=== PATIENT | male | born 1970 | race American Indian/Alaskan Native ===

== ENCOUNTER 2016-11-29 17:13 | Emergency (ER) | payer MEDICAID ==
[2016-11-29 18:55] LABS: Urine Drugs of Abuse Note Disclamer
[2016-11-29 18:58] LABS: Basophils % (Auto) 0.9 % (0.0-1.8); Eosinophils % (Auto) 2.1 % (0.0-4.3); Hematocrit 47.1 % (35.5-45.6); Hemoglobin 15.9 gm/dl (11.8-15.2); Mean Corpuscular HGB Conc 34 % (32-34); Mean Corpuscular Hemoglobin 35 pg (28-32); Mean Corpuscular Volume 102 fl (84-94); Platelet Count 163 K/mm3 (140-440); Red Blood Count 4.61 M/mm3 (3.65-5.03); Red Cell Distribution Width 15.4 % (13.2-15.2); White Blood Count 5.5 K/mm3 (4.5-11.0)
[2016-11-29 19:04] LABS: Bilirubin,Urine NEG (Negative); Blood,Urine NEG (Negative); Ketones,Urine NEG (Negative); Leukocyte Esterase,Urine NEG (Negative); Mucus,Urine FEW /HPF; Nitrite,Urine NEG (Negative); Protein,Urine <15 mg/dL mg/dL (Negative); Urobilinogen,Urine < 2.0 mg/dL (<2.0)
[2016-11-29 19:26] LABS: Anion Gap 19 mmol/L; BUN/Creatinine Ratio 11.42; Blood Urea Nitrogen 8 mg/dL (9-20); Calcium 9.4 mg/dL (8.4-10.2); Carbon Dioxide 26 mmol/L (22-30); Chloride 100.7 mmol/L (98-107); Glucose 83 mg/dL (75-100); Potassium 4.3 mmol/L (3.6-5.0); Sodium 141 mmol/L (137-145)
--- NOTE | 2016-11-30 01:21 | Emergency Department Report ---
ED Psych HPI - General Chief Complaint: Psych Stated Complaint: HEARING VOICES Time Seen by Provider: 11/30/16 01:13 Source: patient Mode of arrival: Ambulatory - History of Present Illness Initial Comments: 45 years old male coming with auditory hallucination, he stated that he is hearing voices talking to each other and they tell him to hurt himself by taking pills. He denied any homicidal ideation. No other complaints MD Complaint: suicidal ideation -: Gradual Associated Psychiatric Symptoms: suicidal ideation, racing thoughts, auditory hallucinations, delusions History of same: Yes If Self Harm: admits thoughts of, has plan, intentional overdose - Related Data Previous Rx's Medication Instructions Recorded Last Taken Type Lisinopril/Hydrochlorothiazide 1 each PO QDAY #90 tablet 03/24/14 Unknown Rx [Zestoretic 10-12.5 mg] Allergies Allergy/AdvReac Type Severity Reaction Status Date / Time No Known Allergies Allergy Verified 11/30/16 00:28 ED Review of Systems ROS: Stated complaint: HEARING VOICES Other details as noted in HPI Comment: Unobtainable due to pts medical conditions Respiratory: denies: cough, orthopnea, shortness of breath Cardiovascular: denies: chest pain Gastrointestinal: denies: abdominal pain, nausea Neurological: denies: headache, weakness, numbness, paresthesias Psychiatric: auditory hallucinations, visual hallucinations, suicidal thoughts. denies: depression, homicidal thoughts ED Past Medical Hx - Past Medical History Previous Medical History?: Yes Hx Hypertension: Yes Hx Psychiatric Treatment: Yes (paranoid schizophrenia) - Surgical History Past Surgical History?: Yes Additional Surgical History: left ankle - Social History Smoking Status: Current Every Day Smoker Substance Use Type: Alcohol, Cocaine, Marijuana - Medications Home Medications: Home Medications Medication Instructions Recorded Confirmed Last Taken Type Lisinopril/Hydrochlorothiazide 1 each PO QDAY #90 tablet 03/24/14 11/30/16 Unknown Rx [Zestoretic 10-12.5 mg] ED Physical Exam - General Limitations: No Limitations General appearance: alert - Head Head exam: Present: atraumatic, normocephalic - Eye Eye exam: Present: normal appearance - ENT ENT exam: Present: normal exam - Neck Neck exam: Present: normal inspection - Respiratory Respiratory exam: Present: normal lung sounds bilaterally - Cardiovascular Cardiovascular Exam: Present: regular rate, normal rhythm, normal heart sounds - GI/Abdominal GI/Abdominal exam: Present: soft. Absent: tenderness, guarding, mass, bruit, pulsatile mass - Back Exam Back exam: Present: normal inspection. Absent: CVA tenderness (R), CVA tenderness (L) - Neurological Exam Neurological exam: Present: alert, oriented X3, CN II-XII intact - Psychiatric Psychiatric exam: Present: anxious, suicidal ideation. Absent: depressed, manic , homicidal ideation - Skin Skin exam: Present: warm ED Course Vital Signs 11/29/16 11/30/16 18:28 00:20 Temperature 98.6 F 98.2 F Pulse Rate 69 57 L Respiratory 18 16 Rate Blood Pressure 156/114 Blood Pressure 161/106 [Left] O2 Sat by Pulse 100 100 Oximetry ED Medical Decision Making - Lab Data Result diagrams: 11/29/16 18:33 11/29/16 18:33 Critical care attestation.: If time is entered above; I have spent that time in minutes in the direct care of this critically ill patient, excluding procedure time. ED Disposition Clinical Impression: Acute psychosis Disposition: [id number]/TX-65 PSY HOSP/PSY UNIT Is pt being admited?: No Condition: Stable Referrals: PRIMARY CARE, [Primary Care Provider] - 3-5 Days
[2016-11-30] MEDS ORDERED: GEODON IM ONE (01:51)
[2016-11-30] MEDS ORDERED: WATER FOR INJ (PF) 10 ML ONE (02:06)
[2016-11-30] MEDS ORDERED: HCTZ PO ONE (05:29)
[2016-11-30] MEDS ORDERED: ZESTRIL PO ONE (05:30)
[2016-11-30] MEDS ORDERED: ZESTRIL ONE (09:18)
[2016-11-30] MEDS ORDERED: HCTZ ONE (09:18)
[2016-11-30 13:48] VITALS: BP 142/99
--- NOTE | 2016-11-30 14:41 | Consultation ---
History of Present Illness - Reason for Consult Consult date: 11/30/16 Reason for consult: Mental Health Evaluation Requesting physician: DAVID MONTEMAYOR - Chief Complaint Chief complaint: "Hello" - History of Present Psychiatric Illness 45 years old male presenting to [facility] for command AH's telling him to harm himself. Today patient is calm and cooperative, but disorganized during the assessment. He could not logically put his answers together when asked questions. He stated that the voices (AH's) was telling him to do all sort of things to himself. He stated that the voices interfered with his sleep last night. Also, he could not elaborate on why he was brought to the hospital. He could not confirm or deny SI's, but denies HI's. He stated that he used cocaine a day ago, because he is celebrating his birthday for the entire month of November. He admit to smoking marijuana often. He denies excessive alcohol consumption and a poor appetite. Medications and Allergies Allergies Allergy/AdvReac Type Severity Reaction Status Date / Time No Known Allergies Allergy Verified 11/30/16 00:28 Home Medications Medication Instructions Recorded Confirmed Last Taken Type Lisinopril/Hydrochlorothiazide 1 each PO QDAY #90 tablet 03/24/14 11/30/16 Unknown Rx [Zestoretic 10-12.5 mg] Past psychiatric history - Past Medical History Past Medical History: hypertension Past Surgical History: Other (Left Ankle surgery) - past Psychiatric treatment and history Psych: Schizophrenia psychiatric treatment history: Multiple inpatient psy settings. Denies a fam psy hx. - Social History Social history: lives with family Mental Status Exam - Vital signs Last Vital Signs Temp 98 F 11/30/16 13:46 Pulse 69 11/30/16 13:46 Resp 18 11/30/16 13:46 BP 142/99 11/30/16 13:46 Pulse Ox 98 11/30/16 13:46 - Exam Narrative exam: ROS: (+) psychosis MSE: Appearance: calm, cooperative Behavior: regular eye contact Speech: regular rate and tone Mood: 'I don't know" withdrawn Affect: congruent to mood Thought Process: circumstantial Thought Content: Denies SI/HI's and VH's, disorganized Motor Activity: lying in bed Cognition: A/Ox 3 Insight: limited Judgment: limited Results Result Diagrams: 11/29/16 18:33 11/29/16 18:33 Abnormal lab results 11/29/16 11/29/16 Range/Units 18:33 18:33 Hgb 15.9 H (11.8-15.2) gm/dl Hct 47.1 H (35.5-45.6) % MCV 102 H (84-94) fl MCH 35 H (28-32) pg RDW 15.4 H (13.2-15.2) % Lymph % (Auto) 41.4 H (13.4-35.0) % BUN 8 L (9-20) mg/dL Creatinine 0.7 L (0.8-1.5) mg/dL All other labs normal. Assessment and Plan Assessment and plan: Impression: Historical Dx: Schizophrenia. Unspecified Mood DO with psychotic features. Substance Use DO (cocaine/marijuana). Today patient is calm and cooperative, but disorganized during the assessment. Positive for cocaine and marijuana. DDx: Schizoaffective DO, R/O Bipolar Recommendation/Plan: Continue 1013 with placement to [place].
== END 2016-11-30 13:46 ==
LOC: ED 17:13 → EEVIPCON 17:13 → ED 11-30 13:46
DX: F23 Brief psychotic disorder (principal); I10 Essential (primary) hypertension; F20.0 Paranoid schizophrenia; F17.200 Nicotine dependence, unspecified, uncomplicated; F12.90 Cannabis use, unspecified, uncomplicated; F14.90 Cocaine use, unspecified, uncomplicated
CPT/HCPCS: 36415; 80048; 80307; 81001; 82550; 85025; 96372; 99285; G0480; J3486; 80320

== ENCOUNTER 2017-04-08 21:55 | Emergency (ER) | payer MEDICAID ==
[2017-04-08 22:09] VITALS: BP 153/98
== END 2017-04-08 23:00 | disposition left against medical advice (07) ==
LOC: ED 21:55
DX: R03.0 Elevated blood-pressure reading, without diagnosis of hypertension (principal); Z53.21 Procedure and treatment not carried out due to patient leaving prior to being seen by health care provider
CPT/HCPCS: 93005; 93010

== ENCOUNTER 2018-10-13 15:33 | Emergency (ER) | payer MEDICAID ==
--- NOTE | 2018-10-13 17:47 | Emergency Department Report ---
ED Neck Pain/Injury HPI - General Chief Complaint: Extremity Injury, Upper Stated Complaint: LT ARM NUMBNESS Time Seen by Provider: 10/13/18 17:14 Mode of arrival: Ambulatory Limitations: No Limitations - History of Present Illness Initial Comments: Patient is a 47-year-old male who presents to the emergency room with complaints of neck pain that began a week ago. He has associated tingling in his bilateral arms. Denies any fall or injury or weakness. pt has experienced tingling in his bilateral arms before. he does not have the tingling currently. He has a past medical history of high blood pressure and mental health. He denies any chest pain, shortness of breath, nausea, vomiting, diarrhea, headache, vision changes. He is a smoker, nondrinker, denies drug use. - Related Data Previous Rx's Medication Instructions Recorded Last Taken Type Lisinopril/Hydrochlorothiazide 1 each PO QDAY #90 tablet 03/24/14 Unknown Rx [Zestoretic 10-12.5 mg] Cyclobenzaprine [Flexeril] 10 mg PO QHS PRN #12 tablet 10/13/18 Unknown Rx Naproxen [EC-Naprosyn] 500 mg PO BID PRN #24 tablet. 10/13/18 Unknown Rx predniSONE [Deltasone] 40 mg PO QDAY 7 Days #14 tab 10/13/18 Unknown Rx Allergies Allergy/AdvReac Type Severity Reaction Status Date / Time No Known Allergies Allergy Verified 10/13/18 15:42 ED Review of Systems ROS: Stated complaint: LT ARM NUMBNESS Other details as noted in HPI Comment: All other systems reviewed and negative ED Past Medical Hx - Past Medical History Previous Medical History?: Yes Hx Hypertension: Yes Hx Psychiatric Treatment: Yes (paranoid schizophrenia) - Surgical History Past Surgical History?: Yes Additional Surgical History: left ankle - Social History Smoking Status: Current Every Day Smoker Substance Use Type: None - Medications Home Medications: Home Medications Medication Instructions Recorded Confirmed Last Taken Type Lisinopril/Hydrochlorothiazide 1 each PO QDAY #90 tablet 03/24/14 11/30/16 Unknown Rx [Zestoretic 10-12.5 mg] Cyclobenzaprine [Flexeril] 10 mg PO QHS PRN #12 tablet 10/13/18 Unknown Rx Naproxen [EC-Naprosyn] 500 mg PO BID PRN #24 tablet. 10/13/18 Unknown Rx predniSONE [Deltasone] 40 mg PO QDAY 7 Days #14 tab 10/13/18 Unknown Rx ED Physical Exam - General Limitations: No Limitations General appearance: alert, in no apparent distress - Head Head exam: Present: atraumatic, normocephalic - Eye Eye exam: Present: normal appearance, PERRL - ENT ENT exam: Present: mucous membranes moist - Neck Neck exam: Present: normal inspection, tenderness (left sided C-spine paraspinal TTP, no midline C-spine tenderness, no step offs, no deformities), full ROM - Respiratory Respiratory exam: Present: normal lung sounds bilaterally. Absent: respiratory distress, wheezes, rales, rhonchi, stridor, chest wall tenderness, accessory muscle use, decreased breath sounds, prolonged expiratory - Cardiovascular Cardiovascular Exam: Present: regular rate, normal rhythm, normal heart sounds. Absent: systolic murmur, diastolic murmur, rubs, gallop - Neurological Exam Neurological exam: Present: alert, oriented X3, CN II-XII intact, normal gait, other (normal finger to nose, normal heel to orta, 5/5 strength in the BUE/BLE, sensation intact throughout, no focal neuro deficit). Absent: motor sensory deficit - Psychiatric Psychiatric exam: Present: normal affect, normal mood - Skin Skin exam: Present: warm, dry, intact ED Course Vital Signs 10/13/18 10/13/18 15:41 19:54 Temperature 98.6 F 97.8 F Pulse Rate 52 L 84 Respiratory 16 14 Rate Blood Pressure 112/72 Blood Pressure 131/82 [Right] O2 Sat by Pulse 100 100 Oximetry ED Medical Decision Making - Lab Data Result diagrams: 10/13/18 18:11 10/13/18 18:11 Lab Results 10/13/18 10/13/18 Range/Units 18:11 18:11 WBC 7.9 (4.5-11.0) K/mm3 RBC 4.19 (3.65-5.03) M/mm3 Hgb 14.0 (11.8-15.2) gm/dl Hct 40.4 (35.5-45.6) % MCV 96 H (84-94) fl MCH 33 H (28-32) pg MCHC 35 H (32-34) % RDW 14.1 (13.2-15.2) % Plt Count 201 (140-440) K/mm3 Lymph % (Auto) 41.6 H (13.4-35.0) % [place] % (Auto) 6.7 (0.0-7.3) % Eos % (Auto) 1.7 (0.0-4.3) % Baso % (Auto) 0.5 (0.0-1.8) % Lymph # 3.3 (1.2-5.4) K/mm3 [place] # 0.5 (0.0-0.8) K/mm3 Eos # 0.1 (0.0-0.4) K/mm3 Baso # 0.0 (0.0-0.1) K/mm3 Seg Neutrophils % 49.5 (40.0-70.0) % Seg Neutrophils # 3.9 (1.8-7.7) K/mm3 Sodium 136 L (137-145) mmol/L Potassium 4.2 (3.6-5.0) mmol/L Chloride 95.0 L (98-107) mmol/L Carbon Dioxide 31 H (22-30) mmol/L Anion Gap 14 mmol/L BUN 8 L (9-20) mg/dL Creatinine 0.8 (0.8-1.5) mg/dL Estimated GFR > 60 ml/min BUN/Creatinine Ratio 10 % Glucose 94 (75-100) mg/dL Calcium 9.4 (8.4-10.2) mg/dL - Radiology Data Radiology results: report reviewed CT CERVICAL SPINE WITHOUT CONTRAST HISTORY: Tingling in both arms since Sunday; neck pain COMPARISON: None TECHNIQUE: CT images of the cervical spine were obtained without contrast. Sagittal and coronal reformats were post-processed. All CT scans at this location are performed using CT dose reduction for ALARA by means of automated exposure control. CONTRAST: None. FINDINGS: Alignment: Normal. Vertebrae:No significant abnormality. Disc Spaces: Disc spaces are narrowed at C5-C6 and C6-C7 disc levels. Nonlateralizing midline disc protrusions are seen at C3-C4 and C4-C5 disc levels. At both these levels, neuroforamina are normal. Midline bulging disc is seen at C2-C3 level. Beam hardening artifacts obscuring the details in the lower cervical spine. Neuroforamina are however are normal. Facet Joints:No significant abnormality. Craniocervical Junction:No significant abnormality. Prevertebral Soft Tissues:No significant abnormality. Lung Apices: No significant abnormality. Additional Findings: None IMPRESSION: Nonlateralizing midline disc protrusions at C3-C4 and C4-C5 disc levels; neuroforamina are normal Signer Name: Lillian Hanson MD Signed: 10/13/2018 7:07 PM Workstation Name: [id number] Transcribed By: BS Dictated By: Lillian Quarles MD Electronically Authenticated By: Lillian Quarles MD Signed Date/Time: 10/13/18 1907 - Medical Decision Making Patient is a 47-year-old male who presents to the emergency room with complaints of neck pain that began a week ago. He has associated tingling in his bilateral arms. Denies any fall or injury or weakness. pt has experienced tingling in his bilateral arms before. he does not have the tingling currently. He has a past medical history of high blood pressure and mental health. He denies any chest pain, shortness of breath, nausea, vomiting, diarrhea, headache, vision changes. He is a smoker, nondrinker, denies drug use. vitals are normal. labs WNL. on exam: left sided C-spine paraspinal TTP, no midline C- spine tenderness, no step offs, no deformities, no focal neuro deficits on exami nation. Ct of the cervical spine: Nonlateralizing midline disc protrusions at C3-C4 and C4-C5 disc levels; neuroforamina are normal. pt given prescription for anti-inflammatory, muscle relaxer, and steroids. advised to please take medication as prescribed. Do not drive or operate heavy machinery while taking muscle relaxer. Follow-up with a primary care doctor the next 2-3 days. Return to the emergency room for any new or worsening symptoms. - Differential Diagnosis sprain, fx, dislocation, DDD, disc herniation, spondylolysis Critical care attestation.: If time is entered above; I have spent that time in minutes in the direct care of this critically ill patient, excluding procedure time. ED Disposition Clinical Impression: Neck pain, Cervical disc herniation, Paresthesia of upper limb Disposition: - TO HOME OR SELFCARE Is pt being admited?: No Does the pt Need Aspirin: No Condition: Stable Instructions: Cervical Disc Herniation (ED) Additional Instructions: Please take medication as prescribed. Do not drive or operate heavy machinery while taking muscle relaxer. Follow-up with a primary care doctor the next 2-3 days. Return to the emergency room for any new or worsening symptoms. Prescriptions: Cyclobenzaprine [Flexeril] 10 mg PO QHS PRN #12 tablet PRN Reason: Muscle Spasm predniSONE [Deltasone] 40 mg PO QDAY 7 Days #14 tab Naproxen [EC-Naprosyn] 500 mg PO BID PRN #24 tablet. PRN Reason: Pain, Moderate (4-6) Referrals: [facility] [Outside] - 2-3 Days [facility] [Provider Group] - 2-3 Days [facility] [Outside] - 2-3 Days Time of Disposition: 19:29 Print Language: KYRGYZ
[2018-10-13 18:44] LABS: BUN/Creatinine Ratio 10; Blood Urea Nitrogen 8 mg/dL (9-20); Calcium 9.4 mg/dL (8.4-10.2); Hemolysis Index 22
--- NOTE | 2018-10-13 19:11 | Cat Scan Report ---
CT CERVICAL SPINE WITHOUT CONTRAST HISTORY: Tingling in both arms since Sunday; neck pain COMPARISON: None TECHNIQUE: CT images of the cervical spine were obtained without contrast. Sagittal and coronal refo rmats were post-processed. All CT scans at this location are performed using CT dose reduction for AL [place] by means of automated exposure control. CONTRAST: None. FINDINGS: Alignment: Normal. Vertebrae:No significant abnormality. Disc Spaces: Disc spaces are narrowed at C5-C6 and C6-C7 disc levels. Nonlateralizing midline disc protrusions are seen at C3-C4 and C4-C5 disc levels. At both these level s, neuroforamina are normal. Midline bulging disc is seen at C2-C3 level. Beam hardening artifacts obscuring the details in the lower cervical spine. Neuroforamina are however are normal. Facet Joints:No significant abnormality. Craniocervical Junction:No significant abnormality. Prevertebral Soft Tissues:No significant abnormality. Lung Apices: No significant abnormality. Additional Findings: None IMPRESSION: Nonlateralizing midline disc protrusions at C3-C4 and C4-C5 disc levels; neuroforamina are normal Signer Name: Lillian Hanson MD Signed: 10/13/2018 7:07 PM Workstation Name: [id number]
[2018-10-13 19:15] LABS: Basophils % (Auto) 0.5 % (0.0-1.8); Eosinophils # (Auto) 0.1 K/mm3 (0.0-0.4); Eosinophils % (Auto) 1.7 % (0.0-4.3); Hematocrit 40.4 % (35.5-45.6); Lymphocytes # (Auto) 3.3 K/mm3 (1.2-5.4); Lymphocytes % (Auto) 41.6 % (13.4-35.0); Mean Corpuscular HGB Conc 35 % (32-34); Mean Corpuscular Hemoglobin 33 pg (28-32); Mean Corpuscular Volume 96 fl (84-94); Monocytes # (Auto) 0.5 K/mm3 (0.0-0.8); Monocytes % (Auto) 6.7 % (0.0-7.3); Platelet Count 201 K/mm3 (140-440); Red Blood Count 4.19 M/mm3 (3.65-5.03); Red Cell Distribution Width 14.1 % (13.2-15.2)
[2018-10-13 19:55] VITALS: BP 131/82
== END 2018-10-13 19:55 | disposition home or self-care (01) ==
LOC: ED 15:33
DX: M50.222 Other cervical disc displacement at C5-C6 level (principal); M50.223 Other cervical disc displacement at C6-C7 level; I10 Essential (primary) hypertension; F20.0 Paranoid schizophrenia; F17.200 Nicotine dependence, unspecified, uncomplicated; Z98.890 Other specified postprocedural states; Z79.899 Other long term (current) drug therapy
CPT/HCPCS: 36415; 72125; 80048; 85025; 99284

== ENCOUNTER 2019-02-16 20:05 | Emergency (ER) | payer MEDICAID ==
[2019-02-16 20:14] VITALS: BP 128/84
--- NOTE | 2019-02-16 20:58 | Event Note ---
ED Screening Note ED Screening Note: c/o left leg pain for two days states from buttock to the feet no leg swelling no fall or injury substernal CP for 3 weeks burning sensation every time he eats or drinks PMHx HTN, schizophrenia no SI/HI This initial assessment/diagnostic orders/clinical plan/treatment(s) is/are subject to change based on patients health status, clinical progression and re- assessment by fellow clinical providers in the ED. Further treatment and workup at subsequent clinical providers discretion. Patient/guardian urged not to elope from the ED as their condition may be serious if not clinically assessed and managed. Initial orders include: XR chest
--- NOTE | 2019-02-16 21:34 | XRay Report ---
CHEST 2 VIEWS INDICATION / CLINICAL INFORMATION: Chest pain. COMPARISON: One view of the chest from 03/30/2007. FINDINGS: SUPPORT DEVICES: None. HEART / MEDIASTINUM: No significant abnormality. LUNGS / PLEURA: No significant pulmonary or pleural abnormality. No pneumothorax. ADDITIONAL FINDINGS: No significant additional findings. IMPRESSION: 1. No acute abnormality of the chest. Signer Name: Isma Angela MD Signed: 02/16/2019 9:29 PM Workstation Name: [id number]
--- NOTE | 2019-02-16 22:03 | Emergency Department Report ---
ED Extremity Problem HPI - General Chief complaint: Extremity Injury, Lower Stated complaint: LEG PAIN, CHEST PAIN Time Seen by Provider: 02/16/19 20:55 Source: patient Mode of arrival: Stretcher Limitations: No Limitations - History of Present Illness Initial comments: Mr. Thompson is a 48-year-old male with history of hypertension, schizophrenia, sciatica. Left leg pain for the past 2 days. [id number] pain from the buttock to the foot. No recent injury. Also has had chest burning with eating and drinking. For the past several weeks. MD Complaint: extremity pain -: Gradual, days(s) (2) Location: left, lower extremity History of Same: Yes Severity scale (0 -10): 7 Quality: aching Consistency: constant Improves with: nothing Worsens with: nothing Associated Symptoms: other (heartburn) - Related Data Previous Rx's Medication Instructions Recorded Last Taken Type Lisinopril/Hydrochlorothiazide 1 each PO QDAY #90 tablet 03/24/14 Unknown Rx [Zestoretic 10-12.5 mg] Cyclobenzaprine [Flexeril] 10 mg PO QHS PRN #12 tablet 10/13/18 Unknown Rx Naproxen [EC-Naprosyn] 500 mg PO BID PRN #24 tablet. 10/13/18 Unknown Rx predniSONE [Deltasone] 40 mg PO QDAY 7 Days #14 tab 10/13/18 Unknown Rx Cyclobenzaprine [Flexeril] 10 mg PO TID PRN #20 tablet 02/16/19 Unknown Rx Ibuprofen [Motrin 400 MG tab] 400 mg PO TID 5 Days #15 tablet 02/16/19 Unknown Rx Omeprazole 40 mg PO DAILY 30 Days #30 02/16/19 Unknown Rx capsule. Allergies Allergy/AdvReac Type Severity Reaction Status Date / Time No Known Allergies Allergy Verified 10/13/18 15:42 ED Review of Systems ROS: Stated complaint: LEG PAIN, CHEST PAIN Other details as noted in HPI Comment: All other systems reviewed and negative Constitutional: denies: fever, malaise Cardiovascular: chest pain Neurological: denies: numbness, paresthesias ED Past Medical Hx - Past Medical History Previous Medical History?: Yes Hx Hypertension: Yes Hx GERD: Yes Hx Psychiatric Treatment: Yes (paranoid schizophrenia) Additional medical history: SCIATIA - Surgical History Past Surgical History?: Yes Additional Surgical History: left ankle - Social History Smoking Status: Current Every Day Smoker Substance Use Type: None - Medications Home Medications: Home Medications Medication Instructions Recorded Confirmed Last Taken Type Lisinopril/Hydrochlorothiazide 1 each PO QDAY #90 tablet 03/24/14 11/30/16 Unknown Rx [Zestoretic 10-12.5 mg] Cyclobenzaprine [Flexeril] 10 mg PO QHS PRN #12 tablet 10/13/18 Unknown Rx Naproxen [EC-Naprosyn] 500 mg PO BID PRN #24 tablet. 10/13/18 Unknown Rx predniSONE [Deltasone] 40 mg PO QDAY 7 Days #14 tab 10/13/18 Unknown Rx Cyclobenzaprine [Flexeril] 10 mg PO TID PRN #20 tablet 02/16/19 Unknown Rx Ibuprofen [Motrin 400 MG tab] 400 mg PO TID 5 Days #15 tablet 02/16/19 Unknown Rx Omeprazole 40 mg PO DAILY 30 Days #30 02/16/19 Unknown Rx capsule. ED Physical Exam - General Limitations: No Limitations General appearance: alert, in no apparent distress - Head Head exam: Present: atraumatic, normocephalic - Eye Eye exam: Present: normal appearance - ENT ENT exam: Present: mucous membranes moist - Neck Neck exam: Present: normal inspection, full ROM - Respiratory Respiratory exam: Present: normal lung sounds bilaterally. Absent: respiratory distress, wheezes, rales, rhonchi - Cardiovascular Cardiovascular Exam: Present: regular rate, normal rhythm, normal heart sounds. Absent: systolic murmur, diastolic murmur, rubs, gallop - GI/Abdominal GI/Abdominal exam: Present: soft, normal bowel sounds. Absent: distended, tenderness, guarding, rebound - Rectal Rectal exam: Present: deferred - Extremities Exam Extremities exam: Present: normal inspection - Neurological Exam Neurological exam: Present: alert, oriented X3 - Psychiatric Psychiatric exam: Present: normal affect, normal mood - Skin Skin exam: Present: warm, dry, intact, normal color. Absent: rash ED Course Vital Signs 02/16/19 02/16/19 20:11 20:56 Temperature 98.6 F 98.7 F Pulse Rate 101 H 103 H Respiratory 18 18 Rate Blood Pressure 128/84 128/84 O2 Sat by Pulse 98 98 Oximetry ED Medical Decision Making - Medical Decision Making 1. Lumbar radiculopathy: Mild pain. No red flags such as trauma fever drug abuse. Prescribed ibuprofen and Flexeril. 2. Heartburn/GERD prescribed omeprazole Critical care attestation.: If time is entered above; I have spent that time in minutes in the direct care of this critically ill patient, excluding procedure time. ED Disposition Clinical Impression: Sciatica, GERD (gastroesophageal reflux disease) Disposition: TO HOME OR SELFCARE Is pt being admited?: No Does the pt Need Aspirin: No Condition: Stable Instructions: Lumbar Radiculopathy (ED), Gastroesophageal Reflux Disease (ED) Prescriptions: Cyclobenzaprine [Flexeril] 10 mg PO TID PRN #20 tablet PRN Reason: Muscle Spasm Ibuprofen [Motrin 400 MG tab] 400 mg PO TID 5 Days #15 tablet Omeprazole 40 mg PO DAILY 30 Days #30 capsule.dr Referrals: ANGEL JARVIS MD [Staff Physician] - 3-5 Days
[2019-02-16] MEDS ORDERED: oxyCODONE /ACETAMINOPHEN 5-325MG TAB PO ONE (22:04)
[2019-02-16] MEDS ORDERED: IBUPROFEN 800 MG TAB PO ONE (22:04)
== END 2019-02-16 23:00 | disposition home or self-care (01) ==
LOC: ED 20:05
DX: K21.9 Gastro-esophageal reflux disease without esophagitis (principal); M54.32 Sciatica, left side; I10 Essential (primary) hypertension; F20.9 Schizophrenia, unspecified; F17.200 Nicotine dependence, unspecified, uncomplicated; Z79.899 Other long term (current) drug therapy
CPT/HCPCS: 71046

== ENCOUNTER 2020-05-28 16:12 | Emergency (ER) | payer MEDICAID ==
[2020-05-28 17:38] LABS: Basophils % (Auto) 0.9 % (0.0-1.8); Eosinophils # (Auto) 0.1 K/mm3 (0.0-0.4); Hematocrit 39.6 % (35.5-45.6); Hemoglobin 13.6 gm/dl (11.8-15.2); Lymphocytes # (Auto) 1.5 K/mm3 (1.2-5.4); Lymphocytes % (Auto) 31.4 % (13.4-35.0); Mean Corpuscular HGB Conc 34 % (32-34); Mean Corpuscular Volume 100 fl (84-94); Monocytes # (Auto) 0.4 K/mm3 (0.0-0.8); Monocytes % (Auto) 8.3 % (0.0-7.3); Platelet Count 185 K/mm3 (140-440); Red Blood Count 3.96 M/mm3 (3.65-5.03)
--- NOTE | 2020-05-28 17:39 | Event Note ---
ED Screening Note Date of service: 05/28/20 Time: 16:57 ED Screening Note: 49-year-old -[place] male presents to the emergency room stating he is hearing voices telling him to harm himself. This initial assessment/diagnostic orders/clinical plan/treatment(s) is/are subject to change based on patients health status, clinical progression and re- assessment by fellow clinical providers in the ED. Further treatment and workup at subsequent clinical providers discretion. Patient/guardian urged not to elope from the ED as their condition may be serious if not clinically assessed and managed. Initial orders include:
[2020-05-28] MEDS ORDERED: MORPHINE 4 MG/1 ML INJ IV ONE (17:50)
[2020-05-28 17:51] LABS: BUN/Creatinine Ratio 14; Blood Urea Nitrogen 11 mg/dL (9-20); Calcium 8.9 mg/dL (8.4-10.2); Hemolysis Index 6
--- NOTE | 2020-05-28 18:09 | Emergency Department Report ---
HPI - General Chief Complaint: Psych Time Seen by Provider: 05/28/20 17:30 - HPI HPI: This is a 49-year-old male who presents to the emergency department with complaint of auditory hallucinations causing suicidal and homicidal ideations. Patient says that he is hearing voices that are "telling me to take some pills and are telling me to kill my mother." Patient has a history of paranoid schizophrenia for which he was previously on Haldol. He admits to medication noncompliance over the past month. He previously followed up with Dr. Lopez in the [facility]. He also has a history of hypertension and once again has not been taking his medications. He is a tobacco smoker but denies any illicit drug use or alcohol use. ED Past Medical Hx - Past Medical History Previous Medical History?: Yes Hx Hypertension: Yes Hx GERD: Yes Hx Psychiatric Treatment: Yes (paranoid schizophrenia) Additional medical history: SCIATIA - Surgical History Past Surgical History?: Yes Additional Surgical History: left ankle - Social History Smoking Status: Current Some Day Smoker Substance Use Type: None - Medications Home Medications: Home Medications Medication Instructions Recorded Confirmed Last Taken Type Lisinopril/Hydrochlorothiazide 1 each PO QDAY #90 tablet 03/24/14 11/30/16 Unknown Rx [Zestoretic 10-12.5 mg] Cyclobenzaprine [Flexeril] 10 mg PO QHS PRN #12 tablet 10/13/18 Unknown Rx Naproxen [EC-Naprosyn] 500 mg PO BID PRN #24 tablet. 10/13/18 Unknown Rx predniSONE [Deltasone] 40 mg PO QDAY 7 Days #14 tab 10/13/18 Unknown Rx Cyclobenzaprine [Flexeril] 10 mg PO TID PRN #20 tablet 02/16/19 Unknown Rx Ibuprofen [Motrin 400 MG tab] 400 mg PO TID 5 Days #15 tablet 02/16/19 Unknown Rx Omeprazole 40 mg PO DAILY 30 Days #30 02/16/19 Unknown Rx capsule. ED Review of Systems ROS: Stated complaint: HEARING VOICES/DRUG USE Other details as noted in HPI Comment: All other systems reviewed and negative Constitutional: denies: chills, fever Eyes: denies: eye pain, vision change ENT: denies: ear pain, throat pain Respiratory: denies: cough, shortness of breath Cardiovascular: denies: chest pain, palpitations Gastrointestinal: denies: abdominal pain, vomiting Genitourinary: denies: dysuria, discharge Musculoskeletal: denies: back pain, arthralgia Skin: denies: rash, lesions Neurological: denies: headache, weakness Psychiatric: auditory hallucinations, homicidal thoughts, suicidal thoughts Physical Exam - Physical Exam Vital Signs: Vital Signs 05/28/20 16:52 Temperature 98.7 F Pulse Rate 89 Respiratory 20 Rate Blood Pressure 147/86 O2 Sat by Pulse 99 Oximetry Physical Exam: GENERAL: The patient is well-developed well-nourished. HENT: Normocephalic. Atraumatic. Patient has moist mucous membranes. EYES: Extraocular motions are intact. NECK: Supple. Trachea is midline. CHEST/LUNGS: Clear to auscultation. There is no respiratory distress noted. HEART/CARDIOVASCULAR: Regular. There is no tachycardia. There is no murmur. ABDOMEN: Abdomen is soft, nontender. Patient has normal bowel sounds. SKIN: Skin is warm and dry. NEURO: The patient is awake, alert, and oriented. The patient is cooperative. Normal speech. MUSCULOSKELETAL: There is no tenderness or deformity. There is no limitation range of motion. PSYCH: Patient has a flat affect. ED Course Vital Signs 05/28/20 16:52 Temperature 98.7 F Pulse Rate 89 Respiratory 20 Rate Blood Pressure 147/86 O2 Sat by Pulse 99 Oximetry ED Medical Decision Making - Lab Data Result diagrams: 05/28/20 17:15 05/28/20 17:15 Lab Results 05/28/20 05/28/20 05/28/20 Range/Units 17:15 17:15 17:15 WBC 4.8 (4.5-11.0) K/mm3 RBC 3.96 (3.65-5.03) M/mm3 Hgb 13.6 (11.8-15.2) gm/dl Hct 39.6 (35.5-45.6) % MCV 100 H (84-94) fl MCH 34 H (28-32) pg MCHC 34 (32-34) % RDW 14.0 (13.2-15.2) % Plt Count 185 (140-440) K/mm3 Lymph % (Auto) 31.4 (13.4-35.0) % [place] % (Auto) 8.3 H (0.0-7.3) % Eos % (Auto) 2.0 (0.0-4.3) % Baso % (Auto) 0.9 (0.0-1.8) % Lymph # (Auto) 1.5 (1.2-5.4) K/mm3 [place] # (Auto) 0.4 (0.0-0.8) K/mm3 Eos # (Auto) 0.1 (0.0-0.4) K/mm3 Baso # (Auto) 0.0 (0.0-0.1) K/mm3 Seg Neutrophils % 57.4 (40.0-70.0) % Seg Neutrophils # 2.8 (1.8-7.7) K/mm3 Sodium 142 (137-145) mmol/L Potassium 3.6 (3.6-5.0) mmol/L Chloride 104.2 (98-107) mmol/L Carbon Dioxide 31 H (22-30) mmol/L Anion Gap 10 mmol/L BUN 11 (9-20) mg/dL Creatinine 0.8 (0.8-1.3) mg/dL Estimated GFR > 60 ml/min BUN/Creatinine Ratio 14 % Glucose 115 H (75-100) mg/dL Calcium 8.9 (8.4-10.2) mg/dL Urine Color (Yellow) Urine Turbidity (Clear) Urine pH (5.0-7.0) Ur Specific [place] (1.003-1.030) Urine Protein (Negative) mg/dL Urine Glucose (UA) (Negative) mg/dL Urine Ketones (Negative) mg/dL Urine Blood (Negative) Urine Nitrite (Negative) Urine Bilirubin (Negative) Urine Urobilinogen (<2.0) mg/dL Ur Leukocyte Esterase (Negative) Urine WBC (Auto) (0.0-6.0) /HPF Urine RBC (Auto) (0.0-6.0) /HPF U Epithel Cells (Auto) (0-13.0) /HPF Salicylates < 0.3 L (2.8-20.0) mg/dL Urine Opiates Screen Urine Methadone Screen Acetaminophen (10.0-30.0) ug/mL Ur Barbiturates Screen Ur Phencyclidine Scrn Ur Amphetamines Screen U Benzodiazepines Scrn Urine Cocaine Screen U Marijuana (THC) Screen Drugs of Abuse Note 05/28/20 05/28/20 05/28/20 Range/Units 17:15 Unknown Unknown WBC (4.5-11.0) K/mm3 RBC (3.65-5.03) M/mm3 Hgb (11.8-15.2) gm/dl Hct (35.5-45.6) % MCV (84-94) fl MCH (28-32) pg MCHC (32-34) % RDW (13.2-15.2) % Plt Count (140-440) K/mm3 Lymph % (Auto) (13.4-35.0) % [place] % (Auto) (0.0-7.3) % Eos % (Auto) (0.0-4.3) % Baso % (Auto) (0.0-1.8) % Lymph # (Auto) (1.2-5.4) K/mm3 [place] # (Auto) (0.0-0.8) K/mm3 Eos # (Auto) (0.0-0.4) K/mm3 Baso # (Auto) (0.0-0.1) K/mm3 Seg Neutrophils % (40.0-70.0) % Seg Neutrophils # (1.8-7.7) K/mm3 Sodium (137-145) mmol/L Potassium (3.6-5.0) mmol/L Chloride (98-107) mmol/L Carbon Dioxide (22-30) mmol/L Anion Gap mmol/L BUN (9-20) mg/dL Creatinine (0.8-1.3) mg/dL Estimated GFR ml/min BUN/Creatinine Ratio % Glucose (75-100) mg/dL Calcium (8.4-10.2) mg/dL Urine Color Yellow (Yellow) Urine Turbidity Clear (Clear) Urine pH 6.0 (5.0-7.0) Ur Specific [place] 1.026 (1.003-1.030) Urine Protein 30 mg/dl (Negative) mg/dL Urine Glucose (UA) Neg (Negative) mg/dL Urine Ketones Neg (Negative) mg/dL Urine Blood Sm (Negative) Urine Nitrite Neg (Negative) Urine Bilirubin Neg (Negative) Urine Urobilinogen 4.0 (<2.0) mg/dL Ur Leukocyte Esterase Neg (Negative) Urine WBC (Auto) 1.0 (0.0-6.0) /HPF Urine RBC (Auto) 3.0 (0.0-6.0) /HPF U Epithel Cells (Auto) 1.0 (0-13.0) /HPF Salicylates (2.8-20.0) mg/dL Urine Opiates Screen Negative Urine Methadone Screen Negative Acetaminophen 5.0 L (10.0-30.0) ug/mL Ur Barbiturates Screen Negative Ur Phencyclidine Scrn Negative Ur Amphetamines Screen Negative U Benzodiazepines Scrn Negative Urine Cocaine Screen Positive U Marijuana (THC) Screen Negative Drugs of Abuse Note Disclamer - Medical Decision Making This patient presents to the emergency department with a history of schizophrenia and the complaints of command auditory hallucinations causing suicidal and homicidal ideations. For this reason the patient has been placed on a 1013 and ED hold. Labs have been mostly unremarkable except for a urine drug screen positive for cocaine. The patient is currently calm and cooperative and does not appear acutely intoxicated from cocaine. His vital signs have been reassuring throughout his ED course thus far including being afebrile. The patient will be seen by the psychiatric assessment team for further dis position. I consider this patient medically cleared for psychiatric placement at this time. Critical Care Time: No Critical care attestation.: If time is entered above; I have spent that time in minutes in the direct care of this critically ill patient, excluding procedure time. ED Disposition Clinical Impression: History of command hallucinations, Suicidal ideations, Homicidal ideations Schizophrenia Qualifiers: Schizophrenia type: unspecified Qualified Code(s): F20.9 - Schizophrenia, unspecified Disposition: DC/TX-65 PSY HOSP/PSY UNIT Is pt being admited?: No Time of Disposition: 19:50
--- NOTE | 2020-05-28 18:18 | XRay Report ---
CHEST 1 VIEW 05/28/2020 6:08 PM INDICATION / CLINICAL INFORMATION: cough. COMPARISON: 02/16/2019 FINDINGS: SUPPORT DEVICES: None. HEART / MEDIASTINUM: No significant abnormality. LUNGS / PLEURA: No confluent infiltrates or pleural effusions No pneumothorax. ADDITIONAL FINDINGS: No significant additional findings. IMPRESSION: 1. No acute findings. No significant interval change since 02/16/2019. Signer Name: Dick Hernandez MD Signed: 05/28/2020 6:14 PM Workstation Name: [id number]
[2020-05-28 18:52] LABS: Bilirubin,Urine NEG (Negative); Blood,Urine SM (Negative); Color,Urine Yellow (Yellow)
[2020-05-28 19:00] LABS: Amphetamine Screen,Urine Negative; Benzodiazepines Screen,Urine Negative; Cannabinoid Screen,Urine Negative; Methadone Screen,Urine Negative; Opiate Screen,Urine Negative
[2020-05-28 19:16] LABS: Cocaine Screen,Urine Positive
[2020-05-29 08:32] VITALS: BP 142/87
--- NOTE | 2020-05-29 10:28 | Consultation ---
History of Present Illness - Reason for Consult Consult date: 05/29/20 Reason for consult: MHE Requesting physician: ELSA POWELL - History of Present Psychiatric Illness Per ED Provider: This is a 49-year-old male who presents to the emergency department with complaint of auditory hallucinations causing suicidal and homicidal ideations. Patient says that he is hearing voices that are "telling me to take some pills and are telling me to kill my mother." Patient has a history of paranoid schizophrenia for which he was previously on Haldol. He admits to medication noncompliance over the past month. He previously followed up with Dr. Lopez in the [facility]. He also has a history of hypertension and once again has not been taking his medications. He is a tobacco smoker but denies any illicit drug use or alcohol use. PSYCH HPI Patient is a 49-year-old single, currently unemployed on SSI -[place] male who currently resides with family with past psychiatric history of schizophrenia and no other significant past medical history who presented to the ED with chief complaint of having intermittent suicidal commanding auditory hallucinations telling him to hurt himself.. Patient reported he has been noncompliant with his monthly shot of Haldol Decanoate and is since the last so that he got has been wearing off because he is beginning to be hearing voices. Patient denies any other contributing factors such as major depression the suicidal thoughts and thoughts of self- harm. Patient eats and sleeps well. Patient denies panic attacks, recurrent nigh tmares or flashbacks. Patient denies symptoms suggestive of OCD or PTSD. Patient has no features suggestive of hypomania or turner. PAST PSYCHIATRIC HISTORY Diagnoses: Schizophrenia Suicide attempts or Self-harm behavior: Yes Prior psychiatric hospitalizations: Yes Substance Abuse history: Cocaine Previous psychiatric medications tried: Haldol [place]vega monthly Outpatient treatment: Yes PAST MEDICAL HISTORY: None reported Family Psychiatric History: None reported or documented SOCIAL HISTORY Marital Status: Single Living Arrangements: With family Employment Status: [employer] Access to guns/weapons: None reported Education: 12th grade History of Abuse: None report Legal History: Yes REVIEW OF SYSTEMS Constitutional: Negative for weight loss ENT: Negative for stridor Respiratory: Negative for cough or hemoptysis All other systems reviewed and are negative MENTAL STATUS EXAMINATION General Appearance and Behavior: Age appropriate, good hygiene, wearing appropriate clothes,, good eye contact Cooperation: Participating/engaged, but Guarded Psychomotor Behavior: Psychomotor normal Mood: depressed Affect and affective range: irritable, labile Thought Process: illogical Thought Content: hopelessness, helplessness Speech: Normal rate, volume and rythm Intellectual Functioning: Average Suicidal Ideation: SI Homicidal Ideation: Denies HI Impulse Control: Impaired Insight and Judgment: Limited insight and judgment Memory: Normal Attention: Normal Orientation: Alert, oriented Diagnoses: Assessment and Plan - Psychiatric problem (1) Schizophrenia Current Visit: Yes Status: Acute Treatment Plan Will restart decanote MEDICATIONS: Risks, benefits and alternatives of medications discussed with the patient, questions answered and consent obtained from patient. PSYCHOTHERAPY: Supportive psychotherapy provided MEDICAL: Per primary team DELIRIUM PRECAUTIONS: Please re-orient patient frequently, keep lights on during the day, and minimize benzodiazepines and opiates as these medications could worsen patient's confusion. INVENTORY ADMINISTRATOR: DISPOSITION: Do Recommend acute inpatient psychiatric hospitalization at this time. Case discussed with Dr. Seaman who agrees with current disposition LEGAL STATUS: 1013 FOLLOW-UP: Will follow Thank you for the consult. Please contact with any questions and/or concerns. Medications and Allergies Allergies Allergy/AdvReac Type Severity Reaction Status Date / Time No Known Allergies Allergy Verified 10/13/18 15:42 Home Medications Medication Instructions Recorded Confirmed Last Taken Type Lisinopril/Hydrochlorothiazide 1 each PO QDAY #90 tablet 03/24/14 11/30/16 Unknown Rx [Zestoretic 10-12.5 mg] Cyclobenzaprine [Flexeril] 10 mg PO QHS PRN #12 tablet 10/13/18 Unknown Rx Naproxen [EC-Naprosyn] 500 mg PO BID PRN #24 tablet. 10/13/18 Unknown Rx predniSONE [Deltasone] 40 mg PO QDAY 7 Days #14 tab 10/13/18 Unknown Rx Cyclobenzaprine [Flexeril] 10 mg PO TID PRN #20 tablet 02/16/19 Unknown Rx Ibuprofen [Motrin 400 MG tab] 400 mg PO TID 5 Days #15 tablet 02/16/19 Unknown Rx Omeprazole 40 mg PO DAILY 30 Days #30 02/16/19 Unknown Rx capsule. Mental Status Exam - Vital signs Last Vital Signs Temp 98.4 F 05/29/20 08:31 Pulse 68 05/29/20 08:31 Resp 18 05/29/20 08:31 BP 142/87 05/29/20 08:31 Pulse Ox 100 05/29/20 08:31 Results Result Diagrams: 05/28/20 17:15 05/28/20 17:15 Abnormal lab results 05/28/20 05/28/20 05/28/20 Range/Units 17:15 17:15 17:15 MCV 100 H (84-94) fl MCH 34 H (28-32) pg [place] % (Auto) 8.3 H (0.0-7.3) % Carbon Dioxide 31 H (22-30) mmol/L Glucose 115 H (75-100) mg/dL Salicylates < 0.3 L (2.8-20.0) mg/dL Acetaminophen (10.0-30.0) ug/mL 05/28/20 Range/Units 17:15 MCV (84-94) fl MCH (28-32) pg [place] % (Auto) (0.0-7.3) % Carbon Dioxide (22-30) mmol/L Glucose (75-100) mg/dL Salicylates (2.8-20.0) mg/dL Acetaminophen 5.0 L (10.0-30.0) ug/mL All other labs normal. Assessment and Plan - Psychiatric problem (1) Schizophrenia Current Visit: Yes Status: Acute
[2020-05-29] MEDS ORDERED: HALOPERIDOL DECANOATE 100 MG/1 ML INJ IM ONE (11:00)
[2020-05-29] MEDS ORDERED: BENZTROPINE 2 MG/2 ML INJ IM SCH (11:00)
== END 2020-05-29 15:14 | disposition home or self-care (01) ==
LOC: ED 16:12
DX: F20.9 Schizophrenia, unspecified (principal); Z20.822 Contact with and (suspected) exposure to COVID-19; R45.851 Suicidal ideations; R45.850 Homicidal ideations; I10 Essential (primary) hypertension; K21.9 Gastro-esophageal reflux disease without esophagitis; F17.200 Nicotine dependence, unspecified, uncomplicated; Z98.890 Other specified postprocedural states; Z79.1 Long term (current) use of non-steroidal anti-inflammatories (NSAID); Z79.899 Other long term (current) drug therapy
CPT/HCPCS: 36415; 71045; 80048; 80307; 81001; 85025; 96372; 99285; J0515; J1631; U0003; 80320; G0480

== ENCOUNTER 2020-05-29 14:35 | Inpatient (IN) | payer MEDICAID ==
--- NOTE | 2020-05-29 20:19 | Consultation ---
History of Present Illness - Reason for Consult Consult date: 05/29/20 Medical management Requesting physician: DAVID CONDE - History of Present Illness 49 YO Male with GERD, HTN, Schizophrenia, Nicotine Dependence admitted to [facility] for Psychiatric stabilization. Consult placed by Dr. Conde for medical management. Patient seen and evaluated in the emergency department. All lab and imaging studies reviewed. Patient denies fever, chills, chest pain, palpitations, productive cough, skin rash, recent ill contact, or known exposure to COVID-19. No reported nursing events. Patient cooperative with exam and interview. Past History Past Medical History: GERD, hypertension, other (See HPI) Past Surgical History: Other (Ankle surgery) Social history: single, smoking Family history: diabetes, hypertension Medications and Allergies Allergies Allergy/AdvReac Type Severity Reaction Status Date / Time No Known Allergies Allergy Verified 10/13/18 15:42 Home Medications Medication Instructions Recorded Confirmed Last Taken Type Lisinopril/Hydrochlorothiazide 1 each PO QDAY #90 tablet 03/24/14 05/29/20 Unknown Rx [Zestoretic 10-12.5 mg] Omeprazole 40 mg PO DAILY 30 Days #30 02/16/19 05/29/20 Unknown Rx capsule. Benztropine [Cogentin] 2 mg PO BID 05/29/20 05/29/20 Unknown History haloperidoL [Haloperidol] 5 mg PO HS 05/29/20 05/29/20 Unknown History Review of Systems Constitutional: no weight loss, no weight gain, no fever, no chills Ears, nose, mouth and throat: no ear pain, no tinnitis, no sinus pressure Cardiovascular: no chest pain, no orthopnea, no rapid/irregular heart beat, no edema, no lightheadedness Respiratory: no cough, no cough with sputum, no excessive sputum, no hemoptysis, no shortness of breath Gastrointestinal: no abdominal pain, no nausea, no vomiting, no diarrhea, no constipation, no change in bowel habits Genitourinary Male: no hematuria, no flank pain, no discharge, no urinary frequency, no urinary hesitancy Rectal: no pain, no incontinence, no bleeding Musculoskeletal: no neck pain, no shooting arm pain, no low back pain, no leg numbness/tingling Integumentary: no rash, no pruritis, no redness, no sores, no wounds, no blisters Neurological: no head injury, no paralysis, no weakness, no numbness, no tingling, no syncope, no tremors, no ataxia Psychiatric: hallucinations, depression, other Endocrine: no cold intolerance, no heat intolerance, no excessive thirst, no polydipsia, no nocturia, no excessive sweating Hematologic/Lymphatic: no easy bruising, no easy bleeding, no lymphadenopathy Allergic/Immunologic: no urticaria, no allergic rhinitis, no persistent infections, no angioedema Exam - Constitutional General appearance: Present: no acute distress, well-nourished - EENT Eyes: Present: PERRL ENT: hearing intact, clear oral mucosa - Neck Neck: Present: supple, normal ROM - Respiratory Respiratory effort: normal Respiratory: bilateral: CTA - Cardiovascular Heart Sounds: Present: S1 & S2. Absent: rub, click - Extremities Extremities: pulses symmetrical, No edema Peripheral Pulses: within normal limits - Abdominal General gastrointestinal: Present: soft, non-tender, non-distended, normal bowel sounds Male genitourinary: Present: normal - Integumentary Integumentary: Present: clear, warm, dry - Musculoskeletal Musculoskeletal: gait normal, strength equal bilaterally - Psychiatric Psychiatric: cooperative - Neurologic Neurologic: CNII-XII intact, moves all extremities Assessment and Plan - Patient Problems (1) Hypertension Current Visit: Yes Status: Acute Qualifiers: Hypertension type: essential hypertension Qualified Code(s): I10 - Essential (primary) hypertension Plan to address problem: Monitor blood pressure every shift, continue medical management. (2) GERD (gastroesophageal reflux disease) Current Visit: Yes Status: Acute Qualifiers: Esophagitis presence: without esophagitis Qualified Code(s): K21.9 - Gastro-esophageal reflux disease without esophagitis Plan to address problem: PPI therapy, supportive care, outpatient GI follow-up for age-related screening test.
[2020-05-29 20:52] LABS: Basophils % (Auto) 0.9 % (0.0-1.8); Eosinophils # (Auto) 0.1 K/mm3 (0.0-0.4); Eosinophils % (Auto) 3.1 % (0.0-4.3); Hematocrit 40.5 % (35.5-45.6); Hemoglobin 13.8 gm/dl (11.8-15.2); Lymphocytes # (Auto) 1.3 K/mm3 (1.2-5.4); Lymphocytes % (Auto) 27.5 % (13.4-35.0); Mean Corpuscular HGB Conc 34 % (32-34); Mean Corpuscular Volume 101 fl (84-94); Monocytes # (Auto) 0.4 K/mm3 (0.0-0.8); Monocytes % (Auto) 8.8 % (0.0-7.3); Platelet Count 182 K/mm3 (140-440); Red Blood Count 4.02 M/mm3 (3.65-5.03); Red Cell Distribution Width 14.2 % (13.2-15.2)
[2020-05-29 21:12] LABS: Alanine Aminotransferase 12 units/L (7-56); Albumin 3.6 g/dL (3.9-5); BUN/Creatinine Ratio 16; Blood Urea Nitrogen 13 mg/dL (9-20); Calcium 8.7 mg/dL (8.4-10.2); Chol/HDL Ratio 2.78 %; HDL Cholesterol 50 mg/dL (40-59); Hemolysis Index 1; LDL Cholesterol,Direct 84 mg/dL (50-130)
[2020-05-29] MEDS: MIRTAZAPINE 15 MG TAB PO SCH (21:24)
--- NOTE | 2020-05-30 08:57 | History and Physical Report ---
GP History & Physical - History of Present Illness Date of admission: 05/29/20 Date of Examination: 05/30/20 Reason for Admission: Impaired reality testing, Failure of Outpatient Treatment, Psychopathology interference History of Present Illness: Per ED Provider: This is a 49-year-old male who presents to the emergency department with complaint of auditory hallucinations causing suicidal and homicidal ideations. Patient says that he is hearing voices that are "telling me to take some pills and are telling me to kill my mother." Patient has a history of paranoid schizophrenia for which he was previously on Haldol. He admits to medication noncompliance over the past month. He previously followed up with Dr. Lopez in the [facility]. He also has a history of hypertension and once again has not been taking his medications. He is a tobacco smoker but denies any illicit drug use or alcohol use. PSYCH HPI Patient is a 49-year-old single, currently unemployed on SSI -[place] male who currently resides with family with past psychiatric history of schizophrenia and no other significant past medical history who presented to the ED with chief complaint of having intermittent suicidal commanding auditory hallucinations telling him to hurt himself.. Patient reported he has been noncompliant with his monthly shot of Haldol Decanoate and is since the last so that he got has been wearing off because he is beginning to be hearing voices. Patient denies any other contributing factors such as major depression the suicidal thoughts and thoughts of self- harm. Patient eats and sleeps well. Patient denies panic attacks, recurrent nightmares or flashbacks. Patient denies symptoms suggestive of OCD or PTSD. Patient has no features suggestive of hypomania or turner. PAST PSYCHIATRIC HISTORY Diagnoses: Schizophrenia Suicide attempts or Self-harm behavior: Yes Prior psychiatric hospitalizations: Yes Substance Abuse history: Cocaine Previous psychiatric medications tried: Haldol [place] monthly Outpatient treatment: Yes PAST MEDICAL HISTORY: HTN Family Psychiatric History: None reported or documented SOCIAL HISTORY Marital Status: Single Living Arrangements: With family Employment Status: [employer] Access to guns/weapons: None reported Education: 12th grade History of Abuse: None report Legal History: Yes REVIEW OF SYSTEMS Constitutional: Negative for weight loss ENT: Negative for stridor Respiratory: Negative for cough or hemoptysis All other systems reviewed and are negative MENTAL STATUS EXAMINATION General Appearance and Behavior: Age appropriate, good hygiene, wearing appropriate clothes,, good eye contact Cooperation: Participating/engaged, but Guarded Psychomotor Behavior: Psychomotor normal Mood: depressed Affect and affective range: irritable, labile Thought Process: illogical Thought Content: hopelessness, helplessness Speech: Normal rate, volume and rythm Intellectual Functioning: Average Suicidal Ideation: SI Homicidal Ideation: Denies HI Impulse Control: Impaired Insight and Judgment: Limited insight and judgment Memory: Normal Attention: Normal Orientation: Alert, oriented Assessment and Plan - Psychiatric problem (1) Schizophrenia Current Visit: Yes Status: Acute Treatment Plan Patient started on Haldol 100mg Decanoate yesterday. Will continue to observe for stability Patient admitted for inpatient psychiatric evaluation, medication adjustment and close monitoring The patient's behavior, mood, sleep and appetite will be closely monitored. Patient enrolled in individual and group therapeutic sessions and encouraged to attend. Patient provided with a safe and structured environment. Patient's physical health needs will be addressed by the Hospitalist. Ho spitalist Consulted Labs including CBC, CMP, Lipid profile and Hemoglobin A1C levels ordered for baseline reference Social Assessment will be completed and the Nail Galvanizer will work with patient and family to ensure a suitable and safe disposition Medication adjustment will be made as clinically indicated Usual Wellness Confucianism/Preservation: - Start Trazodone 50 mg po QHS & 50 mg po QHS PRN between 10 PM & 2 AM for insomnia - Start Melatonin 5 mg po QHS to promote circadian rhythm - Start [place]-3 for brain health, reduce impulsivity, and as adjunctive treatment for mood disorder, continue upon discharge given overall benefits. - Start B1 prophylaxis with 200 mg po for 5 days The patient agreed on the treatment plan, understood the risk, benefit, alternative treatment, potential consequence of no treatment, and gave informed consent. Initial Certification Inpatient psych services: I certify that the inpatient psychiatric services are required for treatment that could reasonably be expected to improve the patient's condition. Estimated days: 7 Post hospital care: primary care provider, psychiatric provider Legal Status: Voluntary Patient Problems: Current Active Problems GERD (gastroesophageal reflux disease) (Acute) Hypertension (Acute) Reaction to Hospitalization: Accepting Medications and Allergies Allergies Allergy/AdvReac Type Severity Reaction Status Date / Time No Known Allergies Allergy Verified 10/13/18 15:42 Home Medications Medication Instructions Recorded Confirmed Last Taken Type Lisinopril/Hydrochlorothiazide 1 each PO QDAY #90 tablet 03/24/14 05/29/20 Unknown Rx [Zestoretic 10-12.5 mg] Omeprazole 40 mg PO DAILY 30 Days #30 02/16/05/29/20 Unknown Rx capsule. Benztropine [Cogentin] 2 mg PO BID 05/29/20 05/29/20 Unknown History haloperidoL [Haloperidol] 5 mg PO HS 05/29/20 05/29/20 Unknown History Active Meds: Active Medications Hydrochlorothiazide (Hydrochlorothiazide 12.5 Mg Cap) 12.5 mg PO QDAY [facility] Lisinopril (Lisinopril 10 Mg Tab) 10 mg PO QDAY [facility] Mirtazapine (Mirtazapine 15 Mg Tab) 15 mg PO QHS [facility] Last Admin: 05/29/20 21:24 Dose: 15 mg Documented by: Pantoprazole Sodium (Pantoprazole 40 Mg Tab) 40 mg PO DAILY [facility] Results - Results Labs/Vitals: Laboratory Last Values WBC 4.8 K/mm3 (4.5-11.0) 05/29/20 20:23 RBC 4.02 M/mm3 (3.65-5.03) 05/29/20 20:23 Hgb 13.8 gm/dl (11.8-15.2) 05/29/20 20:23 Hct 40.5 % (35.5-45.6) 05/29/20 20:23 MCV 101 fl (84-94) H 05/29/20 20:23 MCH 34 pg (28-32) H 05/29/20 20:23 MCHC 34 % (32-34) 05/29/20 20:23 RDW 14.2 % (13.2-15.2) 05/29/20 20:23 Plt Count 182 K/mm3 (140-440) 05/29/20 20:23 Lymph % (Auto) 27.5 % (13.4-35.0) 05/29/20 20:23 [place] % (Auto) 8.8 % (0.0-7.3) H 05/29/20 20:23 Eos % (Auto) 3.1 % (0.0-4.3) 05/29/20 20:23 Baso % (Auto) 0.9 % (0.0-1.8) 05/29/20 20:23 Lymph # (Auto) 1.3 K/mm3 (1.2-5.4) 05/29/20 20:23 [place] # (Auto) 0.4 K/mm3 (0.0-0.8) 05/29/20 20:23 Eos # (Auto) 0.1 K/mm3 (0.0-0.4) 05/29/20 20:23 Baso # (Auto) 0.0 K/mm3 (0.0-0.1) 05/29/20 20:23 Seg Neutrophils % 59.7 % (40.0-70.0) 05/29/20 20:23 Seg Neutrophils # 2.9 K/mm3 (1.8-7.7) 05/29/20 20:23 Sodium 138 mmol/L (137-145) 05/29/20 20:23 Potassium 3.7 mmol/L (3.6-5.0) 05/29/20 20:23 Chloride 102.6 mmol/L (98-107) 05/29/20 20:23 Carbon Dioxide 30 mmol/L (22-30) 05/29/20 20:23 Anion Gap 9 mmol/L 05/29/20 20:23 BUN 13 mg/dL (9-20) 05/29/20 20:23 Creatinine 0.8 mg/dL (0.8-1.3) 05/29/20 20:23 Estimated GFR > 60 ml/min 05/29/20 20:23 BUN/Creatinine Ratio 16 % 05/29/20 20:23 Glucose 109 mg/dL (75-100) H 05/29/20 20:23 Hemoglobin A1c 5.2 % (4-6) 05/29/20 20:23 Calcium 8.7 mg/dL (8.4-10.2) 05/29/20 20:23 Total Bilirubin 0.30 mg/dL (0.1-1.2) 05/29/20 20:23 AST 12 units/L (5-40) 05/29/20 20:23 ALT 12 units/L (7-56) 05/29/20 20:23 Alkaline Phosphatase 65 units/L (35-129) 05/29/20 20:23 Total Protein 6.7 g/dL (6.3-8.2) 05/29/20 20:23 Albumin 3.6 g/dL (3.9-5) L 05/29/20 20:23 Albumin/Globulin Ratio 1.2 % 05/29/20 20:23 Triglycerides 70 mg/dL (2-149) 05/29/20 20:23 Cholesterol 139 mg/dL (50-199) 05/29/20 20:23 LDL Cholesterol Direct 84 mg/dL (50-130) 05/29/20 20:23 HDL Cholesterol 50 mg/dL (40-59) 05/29/20 20:23 Cholesterol/HDL Ratio 2.78 % 05/29/20 20:23 TSH 0.935 mlU/mL (0.270-4.200) 05/29/20 20:23 Last Vital Signs Temp 98.3 F 05/30/20 08:08 Pulse 69 05/30/20 08:08 Resp 18 05/30/20 08:08 BP 139/84 05/30/20 08:08 Pulse Ox 100 05/30/20 08:08 Physical Examination - Constitutional Vitals: Vital Signs Temp Pulse Resp BP Pulse Ox 98.3 F 69 18 139/84 100 05/30/20 08:08 05/30/20 08:08 05/30/20 08:08 05/30/20 08:08 05/30/20 08:08 Temperature -Last 24 Hours Temperature 98.3 F Temperature 98.8 F Temperature 98.8 F Mental Status Exam - Vital signs Last Vital Signs Temp 98.3 F 05/30/20 08:08 Pulse 69 05/30/20 08:08 Resp 18 05/30/20 08:08 BP 139/84 05/30/20 08:08 Pulse Ox 100 05/30/20 08:08 Physician Certification - Certification Statement Physician Certification Statement: This is an acknowledgement statement that [place] is a 49 year old M who requires inpatient psychiatric admission for treatment which could reasonably be expected to improve the patient's condition for Estimated period of time patient will need to remain in the hospital: [ ] Plan for post-hospital care: [ ]
[2020-05-30] MEDS: PANTOPRAZOLE 40 MG TAB PO SCH (09:10)
[2020-05-30] MEDS: LISINOPRIL 10 MG TAB PO SCH (09:10)
[2020-05-30] MEDS: hydroCHLOROthiazide 12.5 MG CAP PO SCH (09:10)
[2020-05-30] MEDS ORDERED: NON-FORMULARY EACH (Lisinopril/Hydrochlorothiazide [Zestoretic 10-12.5 Mg] 1 EACH Tablet) PO SCH (10:00)
[2020-05-30] MEDS: OMEGA-3 FATTY ACIDS/FISH OIL 1 GRAM CAP PO SCH ×2 (10:51→21:55)
[2020-05-30] MEDS: MIRTAZAPINE 15 MG TAB PO SCH (21:56)
[2020-05-30] MEDS ORDERED: MELATONIN 5 MG TAB PO PRN (22:00)
--- NOTE | 2020-05-31 07:48 | Progress Note ---
Subjective Date of service: 05/31/20 Principal diagnosis: (1) Schizophrenia Subjective Comment: Psych Nurse: Pt in compliant with tx regimens. Calm and cooperative. Denies AV/H this shift. Rested well overnight. No acute distress observed and none reported. Will continue to monitor. Psych Progress Patient reports feeling slightly better today, endorses disturbed sleep thou over night, has been unable to stay in bed all through in the night, reports still hearing voices, passive SI thoughts and still feeling down. REVIEW OF SYSTEMS Constitutional: Negative for weight loss ENT: Negative for stridor Respiratory: Negative for cough or hemoptysis All other systems reviewed and are negative MENTAL STATUS EXAMINATION General Appearance and Behavior: Age appropriate, good hygiene, wearing appropriate clothes,, good eye contact Cooperation: Participating/engaged, but Guarded Psychomotor Behavior: Psychomotor normal Mood: depressed Affect and affective range: irritable, labile Thought Process: illogical Thought Content: hopelessness, helplessness Speech: Normal rate, volume and rythm Intellectual Functioning: Average Suicidal Ideation: SI Homicidal Ideation: Denies HI Impulse Control: Impaired Insight and Judgment: Limited insight and judgment Memory: Normal Attention: Normal Orientation: Alert, oriented Assessment and Plan - Psychiatric problem (1) Schizophrenia Current Visit: Yes Status: Acute Treatment Plan Patient started on Haldol 100mg Decanoate yesterday. Will continue to observe for stability Patient admitted for inpatient psychiatric evaluation, medication adjustment and close monitoring The patient's behavior, mood, sleep and appetite will be closely monitored. Patient enrolled in individual and group therapeutic sessions and encouraged to attend. Patient provided with a safe and structured environment. Patient's physical health needs will be addressed by the Hospitalist. Hospitalist Consulted Labs including CBC, CMP, Lipid profile and Hemoglobin A1C levels ordered for baseline reference Social Assessment will be completed and the Crown Ironer Operator will work with patient and family to ensure a suitable and safe disposition Medication adjustment will be made as clinically indicated Usual Wellness Taoism/Preservation: - Start Trazodone 50 mg po QHS & 50 mg po QHS PRN between 10 PM & 2 AM for insomnia - Start Melatonin 5 mg po QHS to promote circadian rhythm - Start [place]-3 for brain health, reduce impulsivity, and as adjunctive treatment for mood disorder, continue upon discharge given overall benefits. - Start B1 prophylaxis with 200 mg po for 5 days The patient agreed on the treatment plan, understood the risk, benefit, alternative treatment, potential consequence of no treatment, and gave informed consent. Initial Certification Inpatient psych services: I certify that the inpatient psychiatric services are required for treatment that could reasonably be expected to improve the patient's condition. Estimated days: 7 Post hospital care: primary care provider, psychiatric provider Legal Status: Voluntary Patient Problems: Current Active Problems Medications and Allergies Allergies Allergy/AdvReac Type Severity Reaction Status Date / Time No Known Allergies Allergy Verified 10/13/18 15:42 Home Medications Medication Instructions Recorded Confirmed Last Taken Type Lisinopril/Hydrochlorothiazide 1 each PO QDAY #90 tablet 03/24/14 05/29/20 Unknown Rx [Zestoretic 10-12.5 mg] Omeprazole 40 mg PO DAILY 30 Days #30 02/16/19 05/29/20 Unknown Rx capsule. Benztropine [Cogentin] 2 mg PO BID 05/29/20 05/29/20 Unknown History haloperidoL [Haloperidol] 5 mg PO HS 05/29/20 05/29/20 Unknown History Active Meds: Active Medications Fish Oil ([place]-3 Fatty Acids/Fish Oil 1 Gram Cap) 2,000 mg PO BID [facility] Last Admin: 05/30/20 21:55 Dose: 2,000 mg Documented by: Hydrochlorothiazide (Hydrochlorothiazide 12.5 Mg Cap) 12.5 mg PO QDAY [facility] Last Admin: 05/30/20 09:10 Dose: 12.5 mg Documented by: Lisinopril (Lisinopril 10 Mg Tab) 10 mg PO QDAY [facility] Last Admin: 05/30/20 09:10 Dose: 10 mg Documented by: Melatonin (Melatonin 5 Mg Tab) 5 mg PO QHS PRN PRN Reason: Sleep Mirtazapine (Mirtazapine 15 Mg Tab) 15 mg PO QHS [facility] Last Admin: 05/30/20 21:56 Dose: 15 mg Documented by: Pantoprazole Sodium (Pantoprazole 40 Mg Tab) 40 mg PO DAILY [facility] Last Admin: 05/30/20 09:10 Dose: 40 mg Documented by: Results - Results Labs/Vitals: Laboratory Last Values WBC 4.8 K/mm3 (4.5-11.0) 05/29/20 20:23 RBC 4.02 M/mm3 (3.65-5.03) 05/29/20 20:23 Hgb 13.8 gm/dl (11.8-15.2) 05/29/20 20:23 Hct 40.5 % (35.5-45.6) 05/29/20 20:23 MCV 101 fl (84-94) H 05/29/20 20:23 MCH 34 pg (28-32) H 05/29/20 20:23 MCHC 34 % (32-34) 05/29/20 20:23 RDW 14.2 % (13.2-15.2) 05/29/20 20:23 Plt Count 182 K/mm3 (140-440) 05/29/20 20:23 Lymph % (Auto) 27.5 % (13.4-35.0) 05/29/20 20:23 [place] % (Auto) 8.8 % (0.0-7.3) H 05/29/20 20:23 Eos % (Auto) 3.1 % (0.0-4.3) 05/29/20 20:23 Baso % (Auto) 0.9 % (0.0-1.8) 05/29/20 20:23 Lymph # (Auto) 1.3 K/mm3 (1.2-5.4) 05/29/20 20:23 [place] # (Auto) 0.4 K/mm3 (0.0-0.8) 05/29/20 20:23 Eos # (Auto) 0.1 K/mm3 (0.0-0.4) 05/29/20 20:23 Baso # (Auto) 0.0 K/mm3 (0.0-0.1) 05/29/20 20:23 Seg Neutrophils % 59.7 % (40.0-70.0) 05/29/20 20: Seg Neutrophils # 2.9 K/mm3 (1.8-7.7) 05/29/20 20:23 Sodium 138 mmol/L (137-145) 05/29/20 20:23 Potassium 3.7 mmol/L (3.6-5.0) 05/29/20 20:23 Chloride 102.6 mmol/L (98-107) 05/29/20 20:23 Carbon Dioxide 30 mmol/L (22-30) 05/29/20 20:23 Anion Gap 9 mmol/L 05/29/20 20:23 BUN 13 mg/dL (9-20) 05/29/20 20:23 Creatinine 0.8 mg/dL (0.8-1.3) 05/29/20 20:23 Estimated GFR > 60 ml/min 05/29/20 20:23 BUN/Creatinine Ratio 16 % 05/29/20 20:23 Glucose 109 mg/dL (75-100) H 05/29/20 20:23 Hemoglobin A1c 5.2 % (4-6) 05/29/20 20:23 Calcium 8.7 mg/dL (8.4-10.2) 05/29/20 20:23 Total Bilirubin 0.30 mg/dL (0.1-1.2) 05/29/20 20:23 AST 12 units/L (5-40) 05/29/20 20:23 ALT 12 units/L (7-56) 05/29/20 20:23 Alkaline Phosphatase 65 units/L (35-129) 05/29/20 20:23 Total Protein 6.7 g/dL (6.3-8.2) 05/29/20 20:23 Albumin 3.6 g/dL (3.9-5) L 05/29/20 20:23 Albumin/Globulin Ratio 1.2 % 05/29/20 20:23 Triglycerides 70 mg/dL (2-149) 05/29/20 20:23 Cholesterol 139 mg/dL (50-199) 05/29/20 20:23 LDL Cholesterol Direct 84 mg/dL (50-130) 05/29/20 20:23 HDL Cholesterol 50 mg/dL (40-59) 05/29/20 20:23 Cholesterol/HDL Ratio 2.78 % 05/29/20 20:23 TSH 0.935 mlU/mL (0.270-4.200) 05/29/20 20:23 Last Vital Signs Temp 98.3 F 05/30/20 22:00 Pulse 67 05/30/20 22:00 Resp 18 05/30/20 22:00 BP 131/80 05/30/20 22:00 Pulse Ox 100 05/30/20 22:00
[2020-05-31] MEDS: LISINOPRIL 10 MG TAB PO SCH (10:55)
[2020-05-31] MEDS: hydroCHLOROthiazide 12.5 MG CAP PO SCH (10:55)
[2020-05-31] MEDS: OMEGA-3 FATTY ACIDS/FISH OIL 1 GRAM CAP PO SCH ×2 (10:55→21:24)
[2020-05-31] MEDS: PANTOPRAZOLE 40 MG TAB PO SCH (10:55)
[2020-05-31] MEDS: MELATONIN 5 MG TAB PO SCH (21:24)
[2020-05-31] MEDS: MIRTAZAPINE 15 MG TAB PO SCH (21:24)
--- NOTE | 2020-06-01 07:31 | Progress Note ---
Subjective Date of service: 06/01/20 Principal diagnosis: (1) Schizophrenia Subjective Comment: Psych Nurse: pt spent the evening in activity room watching television, no interaction with peers, alert and oriented x4, calm and cooperative, able to make needs known, denies si/hi, hears voices and sees shadows, pt reports hearing whispering voices, medication compliant, consumed 100% of snack, no distress noted, will continue to monitor for safety. Psych Progress Patient seen the same activity room, today patient is reporting improved mood, sleep and also resolving auditory and visual hallucinations. He endorses eating well, denies any suicidal homicidal ideation at this moment. Nightmares reported by patient and no signs of turner or hypomania. Patient has also been compliant with treatment Reason to continue acute inpatient psychiatric hospitalization: plan to discharge patient REVIEW OF SYSTEMS Constitutional: Negative for weight loss ENT: Negative for stridor Respiratory: Negative for cough or hemoptysis All other systems reviewed and are negative MENTAL STATUS EXAMINATION General Appearance and Behavior: Age appropriate, good hygiene, wearing appropriate clothes, good eye contact, cooperative polite with questioning. Cooperation: Participating/engaged Psychomotor Behavior: unremarkable and within normal limits Mood: Good Affect and affective range: congruent with mood Thought Process: Fluent/Logical, Thought Content: Within reality, Speech: Normal volume, Regular rate and rhythm, Intellectual Functioning: Average Suicidal Ideation: Denies SI Homicidal Ideation: Denies HI Impulse Control: Unimpaired Insight and Judgment: Normal insight and judgment, Memory: Normal, Attention: Normal, Orientation: Alert, oriented, Assessment and Plan - Psychiatric problem (1) Schizophrenia Current Visit: Yes Status: Acute Treatment Plan Will continue to observe for stability Patient admitted for inpatient psychiatric evaluation, medication adjustment and close monitoring The patient's behavior, mood, sleep and appetite will be closely monitored. Patient enrolled in individual and group therapeutic sessions and encouraged to attend. Patient provided with a safe and structured environment. Patient's physical health needs will be addressed by the Hospitalist. Hospitalist Consulted Labs including CBC, CMP, Lipid profile and Hemoglobin A1C levels ordered for baseline reference Social Assessment will be completed and the City Editor will work with patient and family to ensure a suitable and safe disposition Medication adjustment will be made as clinically indicated Usual Wellness Catholic/Preservation: - Start Trazodone 50 mg po QHS & 50 mg po QHS PRN between 10 PM & 2 AM for insomnia - Start Melatonin 5 mg po QHS to promote circadian rhythm - Start [place]-3 for brain health, reduce impulsivity, and as adjunctive treatment for mood disorder, continue upon discharge given overall benefits. - Start B1 prophylaxis with 200 mg po for 5 days The patient agreed on the treatment plan, understood the risk, benefit, alternative treatment, potential consequence of no treatment, and gave informed consent. Initial Certification Inpatient psych services: I certify that the inpatient psychiatric services are required for treatment that could reasonably be expected to improve the patient's condition. Estimated days: 7 Post hospital care: primary care provider, psychiatric provider Legal Status: Voluntary Patient Problems: Current Active Problems Medications and Allergies Allergies Allergy/AdvReac Type Severity Reaction Status Date / Time No Known Allergies Allergy Verified 10/13/18 15:42 Home Medications Medication Instructions Recorded Confirmed Last Taken Type Lisinopril/Hydrochlorothiazide 1 each PO QDAY #90 tablet 03/24/14 05/29/20 Unknown Rx [Zestoretic 10-12.5 mg] Omeprazole 40 mg PO DAILY 30 Days #30 02/16/19 05/29/20 Unknown Rx capsule. Benztropine [Cogentin] 2 mg PO BID 05/29/20 05/29/20 Unknown History haloperidoL [Haloperidol] 5 mg PO HS 05/29/20 05/29/20 Unknown History Active Meds: Active Medications Fish Oil ([place]-3 Fatty Acids/Fish Oil 1 Gram Cap) 2,000 mg PO BID [facility] Last Admin: 05/31/20 21:24 Dose: 2,000 mg Documented by: Hydrochlorothiazide (Hydrochlorothiazide 12.5 Mg Cap) 12.5 mg PO QDAY [facility] Last Admin: 05/31/20 10:55 Dose: 12.5 mg Documented by: Lisinopril (Lisinopril 10 Mg Tab) 10 mg PO QDAY [facility] Last Admin: 05/31/20 10:55 Dose: 10 mg Documented by: Melatonin (Melatonin 5 Mg Tab) 5 mg PO QHS [facility] Last Admin: 05/31/20 21:24 Dose: 5 mg Documented by: Mirtazapine (Mirtazapine 15 Mg Tab) 15 mg PO QHS [facility] Last Admin: 05/31/20 21:24 Dose: 15 mg Documented by: Pantoprazole Sodium (Pantoprazole 40 Mg Tab) 40 mg PO DAILY [facility] Last Admin: 05/31/20 10:55 Dose: 40 mg Documented by: Results - Results Labs/Vitals: Laboratory Last Values WBC 4.8 K/mm3 (4.5-11.0) 05/29/20 20: RBC 4.02 M/mm3 (3.65-5.03) 05/29/20 20:23 Hgb 13.8 gm/dl (11.8-15.2) 05/29/20 20: Hct 40.5 % (35.5-45.6) 05/29/20 20:23 MCV 101 fl (84-94) H 05/29/20 20:23 MCH 34 pg (28-32) H 05/29/20 20: MCHC 34 % (32-34) 05/29/20 20: RDW 14.2 % (13.2-15.2) 05/29/20 20: Plt Count 182 K/mm3 (140-440) 05/29/20 20:23 Lymph % (Auto) 27.5 % (13.4-35.0) 05/29/20 20:23 [place] % (Auto) 8.8 % (0.0-7.3) H 05/29/20 20:23 Eos % (Auto) 3.1 % (0.0-4.3) 05/29/20 20: Baso % (Auto) 0.9 % (0.0-1.8) 05/29/20 20:23 Lymph # (Auto) 1.3 K/mm3 (1.2-5.4) 05/29/20 20: [place] # (Auto) 0.4 K/mm3 (0.0-0.8) 05/29/20 20: Eos # (Auto) 0.1 K/mm3 (0.0-0.4) 05/29/20 20: Baso # (Auto) 0.0 K/mm3 (0.0-0.1) 05/29/20 20: Seg Neutrophils % 59.7 % (40.0-70.0) 05/29/20 20: Seg Neutrophils # 2.9 K/mm3 (1.8-7.7) 05/29/20 20:23 Sodium 138 mmol/L (137-145) 05/29/20 20: Potassium 3.7 mmol/L (3.6-5.0) 05/29/20 20:23 Chloride 102.6 mmol/L (98-107) 05/29/20 20:23 Carbon Dioxide 30 mmol/L (22-30) 05/29/20 20:23 Anion Gap 9 mmol/L 05/29/20 20:23 BUN 13 mg/dL (9-20) 05/29/20 20:23 Creatinine 0.8 mg/dL (0.8-1.3) 05/29/20 20:23 Estimated GFR > 60 ml/min 05/29/20 20:23 BUN/Creatinine Ratio 16 % 05/29/20 20:23 Glucose 109 mg/dL (75-100) H 05/29/20 20:23 Hemoglobin A1c 5.2 % (4-6) 05/29/20 20:23 Calcium 8.7 mg/dL (8.4-10.2) 05/29/20 20:23 Total Bilirubin 0.30 mg/dL (0.1-1.2) 05/29/20 20:23 AST 12 units/L (5-40) 05/29/20 20:23 ALT 12 units/L (7-56) 05/29/20 20:23 Alkaline Phosphatase 65 units/L (35-129) 05/29/20 20:23 Total Protein 6.7 g/dL (6.3-8.2) 05/29/20 20:23 Albumin 3.6 g/dL (3.9-5) L 05/29/20 20:23 Albumin/Globulin Ratio 1.2 % 05/29/20 20:23 Triglycerides 70 mg/dL (2-149) 05/29/20 20:23 Cholesterol 139 mg/dL (50-199) 05/29/20 20:23 LDL Cholesterol Direct 84 mg/dL (50-130) 05/29/20 20:23 HDL Cholesterol 50 mg/dL (40-59) 05/29/20 20:23 Cholesterol/HDL Ratio 2.78 % 05/29/20 20:23 TSH 0.935 mlU/mL (0.270-4.200) 05/29/20 20:23 Last Vital Signs Temp 98.4 F 05/31/20 22:00 Pulse 64 05/31/20 22:00 Resp 15 05/31/20 22:00 BP 130/79 05/31/20 22:00 Pulse Ox 99 05/31/20 22:00
[2020-06-01] MEDS: hydroCHLOROthiazide 12.5 MG CAP PO SCH (09:59)
[2020-06-01] MEDS: LISINOPRIL 10 MG TAB PO SCH (09:59)
[2020-06-01] MEDS: PANTOPRAZOLE 40 MG TAB PO SCH (09:59)
[2020-06-01] MEDS: OMEGA-3 FATTY ACIDS/FISH OIL 1 GRAM CAP PO SCH ×2 (10:00→21:09)
[2020-06-01] MEDS: MIRTAZAPINE 15 MG TAB PO SCH (21:09)
[2020-06-01] MEDS: MELATONIN 5 MG TAB PO SCH (21:09)
--- NOTE | 2020-06-02 07:36 | Progress Note ---
Subjective Date of service: 06/02/20 Principal diagnosis: (1) Schizophrenia Subjective Comment: Psych Nurse: Last evening the patient presented as calm and cooperative. He interacted appropriately with staff and peers. He denies si/hi/vh. Patient states he hears mumbling sounds. He states that has improved since admission. He has a good appetite. Patient is medication compliant. Overnight the patient rested quietly. He slept continually for 8 plus hours. Will continue to monitor patient for safety. Psych Progress Patient describes a good and stable mood, denies being depressed or excessively nervous. Patient eats and sleeps well. Patient denies panic attacks, recurrent nightmares or flashbacks. Patient denies symptoms suggestive of OCD or PTSD. Patient denies hallucinations, paranoia, thought interference and no features suggestive of hypomania or turner. Patiently completely denies suicidal or homicidal thoughts. Reason to continue acute inpatient psychiatric hospitalization: plan to discharge patient REVIEW OF SYSTEMS Constitutional: Negative for weight loss ENT: Negative for stridor Respiratory: Negative for cough or hemoptysis All other systems reviewed and are negative MENTAL STATUS EXAMINATION General Appearance and Behavior: Age appropriate, good hygiene, wearing appropriate clothes, good eye contact, cooperative polite with questioning. Cooperation: Participating/engaged Psychomotor Behavior: unremarkable and within normal limits Mood: Good Affect and affective range: congruent with mood Thought Process: Fluent/Logical, Thought Content: Within reality, Speech: Normal volume, Regular rate and rhythm, Intellectual Functioning: Average Suicidal Ideation: Denies SI Homicidal Ideation: Denies HI Impulse Control: Unimpaired Insight and Judgment: Normal insight and judgment, Memory: Normal, Attention: Normal, Orientation: Alert, oriented, Assessment and Plan - Psychiatric problem (1) Schizophrenia Current Visit: Yes Status: Acute Treatment Plan Will continue to observe for stability Patient admitted for inpatient psychiatric evaluation, medication adjustment and close monitoring The patient's behavior, mood, sleep and appetite will be closely monitored. Patient enrolled in individual and group therapeutic sessions and encouraged to attend. Patient provided with a safe and structured environment. Patient's physical health needs will be addressed by the Hospitalist. Hospitalist Consulted Labs including CBC, CMP, Lipid profile and Hemoglobin A1C levels ordered for baseline reference Social Assessment will be completed and the Regional Business Development Manager will work with patient and family to ensure a suitable and safe disposition Medication adjustment will be made as clinically indicated Usual Wellness Jehovah'S Witness/Preservation: - Start Trazodone 50 mg po QHS & 50 mg po QHS PRN between 10 PM & 2 AM for insomnia - Start Melatonin 5 mg po QHS to promote circadian rhythm - Start [place]-3 for brain health, reduce impulsivity, and as adjunctive treatment for mood disorder, continue upon discharge given overall benefits. - Start B1 prophylaxis with 200 mg po for 5 days The patient agreed on the treatment plan, understood the risk, benefit, alternative treatment, potential consequence of no treatment, and gave informed consent. Initial Certification Inpatient psych services: I certify that the inpatient psychiatric services are required for treatment that could reasonably be expected to improve the patient's condition. Estimated days: 1 Post hospital care: primary care provider, psychiatric provider Legal Status: Voluntary Patient Problems: Current Active Problems Medications and Allergies Allergies Allergy/AdvReac Type Severity Reaction Status Date / Time No Known Allergies Allergy Verified 10/13/18 15:42 Home Medications Medication Instructions Recorded Confirmed Last Taken Type Lisinopril/Hydrochlorothiazide 1 each PO QDAY #90 tablet 03/24/14 05/29/20 Unknown Rx [Zestoretic 10-12.5 mg] Omeprazole 40 mg PO DAILY 30 Days #30 02/16/19 05/29/20 Unknown Rx capsule. Benztropine [Cogentin] 2 mg PO BID 05/29/20 05/29/20 Unknown History haloperidoL [Haloperidol] 5 mg PO HS 05/29/20 05/29/20 Unknown History Melatonin [Melatonin 5MG TAB] 5 mg PO QHS #30 tablet 06/02/20 Unknown Rx Mirtazapine [Remeron 15mg TAB] 15 mg PO QHS #30 tablet 06/02/20 Unknown Rx Active Meds: Active Medications Fish Oil ([place]-3 Fatty Acids/Fish Oil 1 Gram Cap) 2,000 mg PO BID [facility] Last Admin: 06/01/20 21:09 Dose: 2,000 mg Documented by: Hydrochlorothiazide (Hydrochlorothiazide 12.5 Mg Cap) 12.5 mg PO QDAY [facility] Last Admin: 06/01/20 09:59 Dose: 12.5 mg Documented by: Lisinopril (Lisinopril 10 Mg Tab) 10 mg PO QDAY [facility] Last Admin: 06/01/20 09:59 Dose: 10 mg Documented by: Melatonin (Melatonin 5 Mg Tab) 5 mg PO QHS [facility] Last Admin: 06/01/20 21:09 Dose: 5 mg Documented by: Mirtazapine (Mirtazapine 15 Mg Tab) 15 mg PO QHS [facility] Last Admin: 06/01/20 21:09 Dose: 15 mg Documented by: Pantoprazole Sodium (Pantoprazole 40 Mg Tab) 40 mg PO DAILY [facility] Last Admin: 06/01/20 09:59 Dose: 40 mg Documented by: Results - Results Labs/Vitals: Laboratory Last Values WBC 4.8 K/mm3 (4.5-11.0) 05/29/20 20:23 RBC 4.02 M/mm3 (3.65-5.03) 05/29/20 20:23 Hgb 13.8 gm/dl (11.8-15.2) 05/29/20 20:23 Hct 40.5 % (35.5-45.6) 05/29/20 20:23 MCV 101 fl (84-94) H 05/29/20 20:23 MCH 34 pg (28-32) H 05/29/20 20:23 MCHC 34 % (32-34) 05/29/20 20:23 RDW 14.2 % (13.2-15.2) 05/29/20 20:23 Plt Count 182 K/mm3 (140-440) 05/29/20 20:23 Lymph % (Auto) 27.5 % (13.4-35.0) 05/29/20 20:23 [place] % (Auto) 8.8 % (0.0-7.3) H 05/29/20 20:23 Eos % (Auto) 3.1 % (0.0-4.3) 05/29/20 20:23 Baso % (Auto) 0.9 % (0.0-1.8) 05/29/20 20:23 Lymph # (Auto) 1.3 K/mm3 (1.2-5.4) 05/29/20 20:23 [place] # (Auto) 0.4 K/mm3 (0.0-0.8) 05/29/20 20:23 Eos # (Auto) 0.1 K/mm3 (0.0-0.4) 05/29/20 20:23 Baso # (Auto) 0.0 K/mm3 (0.0-0.1) 05/29/20 20:23 Seg Neutrophils % 59.7 % (40.0-70.0) 05/29/20 20:23 Seg Neutrophils # 2.9 K/mm3 (1.8-7.7) 05/29/20 20:23 Sodium 138 mmol/L (137-145) 05/29/20 20:23 Potassium 3.7 mmol/L (3.6-5.0) 05/29/20 20:23 Chloride 102.6 mmol/L (98-107) 05/29/20 20:23 Carbon Dioxide 30 mmol/L (22-30) 05/29/20 20:23 Anion Gap 9 mmol/L 05/29/20 20:23 BUN 13 mg/dL (9-20) 05/29/20 20:23 Creatinine 0.8 mg/dL (0.8-1.3) 05/29/20 20:23 Estimated GFR > 60 ml/min 05/29/20 20:23 BUN/Creatinine Ratio 16 % 05/29/20 20:23 Glucose 109 mg/dL (75-100) H 05/29/20 20:23 Hemoglobin A1c 5.2 % (4-6) 05/29/20 20:23 Calcium 8.7 mg/dL (8.4-10.2) 05/29/20 20:23 Total Bilirubin 0.30 mg/dL (0.1-1.2) 05/29/20 20:23 AST 12 units/L (5-40) 05/29/20 20:23 ALT 12 units/L (7-56) 05/29/20 20:23 Alkaline Phosphatase 65 units/L (35-129) 05/29/20 20:23 Total Protein 6.7 g/dL (6.3-8.2) 05/29/20 20:23 Albumin 3.6 g/dL (3.9-5) L 05/29/20 20:23 Albumin/Globulin Ratio 1.2 % 05/29/20 20:23 Triglycerides 70 mg/dL (2-149) 05/29/20 20:23 Cholesterol 139 mg/dL (50-199) 05/29/20 20:23 LDL Cholesterol Direct 84 mg/dL (50-130) 05/29/20 20:23 HDL Cholesterol 50 mg/dL (40-59) 05/29/20 20:23 Cholesterol/HDL Ratio 2.78 % 05/29/20 20:23 TSH 0.935 mlU/mL (0.270-4.200) 05/29/20 20:23 Last Vital Signs Temp 99.0 F 06/01/20 19:32 Pulse 62 06/01/20 19:32 Resp 18 06/01/20 19:32 BP 122/76 06/01/20 19:32 Pulse Ox 97 06/01/20 19:32
[2020-06-02 08:51] VITALS: BP 130/82
--- NOTE | 2020-06-02 09:03 | Discharge Summary ---
Providers - Providers Date of Admission: 05/29/20 14:35 Date of discharge: 06/02/20 Attending physician: DAVID CONDE MD 05/29/20 15:22 Consult to Physician [CONS] Routine Comment: Consulting Provider: TOYIN TERRAZAS Physician Instructions: Reason For Exam: Med mgt Primary care physician: [facility]OG[facility] PROVIDER Hospitalization Reason for admission: MDD Condition: Good Hospital course: The patient was provided inpatient psychiatric treatment with safe and supportive environment, group/individual therapy, psychiatric medication, medication adjustment, adverse effect monitor, medical evaluation, medical treatment, social service assessment, social support meeting, placement assessment and psycho-education. The patients mood, cognition, behavior, motivation, compliance to treatment and appreciation on family/social support are improved and stabilized. At the time of discharge, the patient had no suici roger ideas, no homicidal ideas, no aggressive thoughts, no endangering behavior and no debilitating adverse effects. The patient agareed on the treatment plan, understood the risk, benefit, alternative treatment, potential consequence of no treatment, and gave informed consent. Disposition: DC-01 TO HOME OR SELFCARE Allergies/Adverse Reactions: Allergies No Known Allergies Allergy (Verified 10/13/18 15:42) Vital Signs: Last Vital Signs Temp 98.2 F 06/02/20 08:48 Pulse 83 06/02/20 08:48 Resp 16 06/02/20 08:48 BP 130/82 06/02/20 08:48 Pulse Ox 100 06/02/20 08:48 Last Lab: Laboratory Last Values WBC 4.8 K/mm3 (4.5-11.0) 05/29/20 20:23 RBC 4.02 M/mm3 (3.65-5.03) 05/29/20 20:23 Hgb 13.8 gm/dl (11.8-15.2) 05/29/20 20:23 Hct 40.5 % (35.5-45.6) 05/29/20 20:23 MCV 101 fl (84-94) H 05/29/20 20:23 MCH 34 pg (28-32) H 05/29/20 20:23 MCHC 34 % (32-34) 05/29/20 20:23 RDW 14.2 % (13.2-15.2) 05/29/20 20:23 Plt Count 182 K/mm3 (140-440) 05/29/20 20:23 Lymph % (Auto) 27.5 % (13.4-35.0) 05/29/20 20:23 [place] % (Auto) 8.8 % (0.0-7.3) H 05/29/20 20:23 Eos % (Auto) 3.1 % (0.0-4.3) 05/29/20 20:23 Baso % (Auto) 0.9 % (0.0-1.8) 05/29/20 20:23 Lymph # (Auto) 1.3 K/mm3 (1.2-5.4) 05/29/20 20:23 [place] # (Auto) 0.4 K/mm3 (0.0-0.8) 05/29/20 20:23 Eos # (Auto) 0.1 K/mm3 (0.0-0.4) 05/29/20 20:23 Baso # (Auto) 0.0 K/mm3 (0.0-0.1) 05/29/20 20:23 Seg Neutrophils % 59.7 % (40.0-70.0) 05/29/20 20:23 Seg Neutrophils # 2.9 K/mm3 (1.8-7.7) 05/29/20 20:23 Sodium 138 mmol/L (137-145) 05/29/20 20:23 Potassium 3.7 mmol/L (3.6-5.0) 05/29/20 20:23 Chloride 102.6 mmol/L (98-107) 05/29/20 20:23 Carbon Dioxide 30 mmol/L (22-30) 05/29/20 20:23 Anion Gap 9 mmol/L 05/29/20 20:23 BUN 13 mg/dL (9-20) 05/29/20 20:23 Creatinine 0.8 mg/dL (0.8-1.3) 05/29/20 20:23 Estimated GFR > 60 ml/min 05/29/20 20:23 BUN/Creatinine Ratio 16 % 05/29/20 20:23 Glucose 109 mg/dL (75-100) H 05/29/20 20:23 Hemoglobin A1c 5.2 % (4-6) 05/29/20 20:23 Calcium 8.7 mg/dL (8.4-10.2) 05/29/20 20:23 Total Bilirubin 0.30 mg/dL (0.1-1.2) 05/29/20 20:23 AST 12 units/L (5-40) 05/29/20 20:23 ALT 12 units/L (7-56) 05/29/20 20:23 Alkaline Phosphatase 65 units/L (35-129) 05/29/20 20:23 Total Protein 6.7 g/dL (6.3-8.2) 05/29/20 20:23 Albumin 3.6 g/dL (3.9-5) L 05/29/20 20:23 Albumin/Globulin Ratio 1.2 % 05/29/20 20:23 Triglycerides 70 mg/dL (2-149) 05/29/20 20:23 Cholesterol 139 mg/dL (50-199) 05/29/20 20:23 LDL Cholesterol Direct 84 mg/dL (50-130) 05/29/20 20:23 HDL Cholesterol 50 mg/dL (40-59) 05/29/20 20:23 Cholesterol/HDL Ratio 2.78 % 05/29/20 20:23 TSH 0.935 mlU/mL (0.270-4.200) 05/29/20 20:23 Core Measure Documentation - Palliative Care Palliative Care/ Comfort Measures: Not Applicable - Core Measures Any of the following diagnoses?: none Exam - Constitutional Vitals: Temp Pulse Resp BP Pulse Ox 98.2 F 83 16 130/82 100 06/02/20 08:48 06/02/20 08:48 06/02/20 08:48 06/02/20 08:48 06/02/20 08:48 General appearance: Present: no acute distress - EENT Eyes: Present: PERRL, EOM intact ENT: hearing intact, clear oral mucosa - Neck Neck: Present: supple, normal ROM - Respiratory Respiratory effort: normal - Abdominal Male genitourinary: Present: deferred Plan Activity: no restrictions Care Plan Goals: Goals: Maintain good and stable mental health. Plan of Treatment: The patient should be compliant with medications, not to use drugs and not to drink alcohol. The patient understands that if suicidal ideas, homicidal ideas, or any endangering thoughts arise, the patient should immediately seek for emergent assistance including but not limited to crisis hot line and emergency room. Follow up with outpatient Psychiatrist and PCP within 7 - 14 days of discharge. Follow up with: PRIMARY CARE,MD [Primary Care Provider] - 7 Days Prescriptions: Melatonin [Melatonin 5MG TAB] 5 mg PO QHS #30 tablet Mirtazapine [Remeron 15mg TAB] 15 mg PO QHS #30 tablet
[2020-06-02] MEDS: PANTOPRAZOLE 40 MG TAB PO SCH (10:03)
[2020-06-02] MEDS: LISINOPRIL 10 MG TAB PO SCH (10:03)
[2020-06-02] MEDS: OMEGA-3 FATTY ACIDS/FISH OIL 1 GRAM CAP PO SCH (10:03)
[2020-06-02] MEDS: hydroCHLOROthiazide 12.5 MG CAP PO SCH (10:03)
== END 2020-06-02 18:43 | disposition home or self-care (01) | DRG 885 ==
LOC: 5A 14:35
PROVIDERS: ADMIT Psychiatry & Neurology Psychiatry; ATTEND Psychiatry & Neurology Psychiatry
DX: F20.9 Schizophrenia, unspecified (principal); K21.9 Gastro-esophageal reflux disease without esophagitis; I10 Essential (primary) hypertension; F17.200 Nicotine dependence, unspecified, uncomplicated; R45.850 Homicidal ideations; R45.851 Suicidal ideations; Z83.3 Family history of diabetes mellitus; Z82.49 Family history of ischemic heart disease and other diseases of the circulatory system; Z79.899 Other long term (current) drug therapy; Z56.0 Unemployment, unspecified
CPT/HCPCS: 36415; 71045; 80048; 80053; 80061; 80307; 80320; 81001; 83036; 84443; 85025; 96372; G0378; G0480; J0515; J1631; U0003